=== PATIENT | female | born 1935 | race Caucasian/White ===

== ENCOUNTER 2023-05-13 19:16 | Inpatient (IN) ==
[2023-05-13] MEDS ORDERED: ACETAMINOPHEN 1,000 MG/100 ML VIAL IV STA (19:29)
[2023-05-13] MEDS ORDERED: SODIUM CHLORIDE 0.9% 1000ML 1,000 ML IV SCH (19:30)
--- NOTE | 2023-05-13 19:53 | Emergency Department Note ---
Impression & Plan CHI (closed head injury), Contusion of face, Fall, Alzheimer's dementia, Humerus fracture, Atrial fibrillation ED Provider Note ED Provider Note NAME: GAGAN CRUZ AGE:87 SEX: Female : 1935 ARRIVES VIA: EMS INFORMANT: EMS ED PROVIDER(s): Mary Overton DO CHIEF COMPLAINT: Fall, head injury HPI: This is an 87-year-old female presents via EMS from a local facility after an unwitnessed ground-level fall. Patient found on the floor with obvious injury to the head and staff they are concerned due to use of Xarelto for anticoagulation. Patient with history of Alzheimer's dementia and unable to provide any additional history. Patient seems uncomfortable in the right shoulder when staff was examining her initially prior to EMS arrival. PAST MEDICAL HISTORY:See Below PAST SURGICAL HISTORY:See Below FAMILY HISTORY:See Below SOCIAL HISTORY:See Below HOME MEDICATIONS:See Below ALLERGIES:See Below VITALS:See Below PHYSICAL EXAMINATION: GENERAL: alert, well nourished, no distress, non-toxic HEAD: nc, contusion noted to the left forehead, dressing in place, no other evidence of facial trauma, no chacon signs, no raccoon eyes EYE EXAM: normal conjunctiva, PERRL and EOM's grossly intact OROPHARYNX: no exudate, no erythema, lips, buccal mucosa, and tongue normal and mucous membranes are dry NECK: supple, no nuchal rigidity, no adenopathy, non-tender LUNGS: Clear to auscultation. Normal chest wall mechanics, no w/r/r HEART: no murmurs, S1 normal and S2 normal CHEST WALL: No pain with palpation along the chest wall, no crepitus, no ecchymosis ABDOMEN: abdomen soft, non-tender, normo-active bowel sounds, no masses, no rebound or guarding. PELVIS: Stable to compression, nontender with palpation BACK: Back is symmetrical on inspection and there is no deformity, no midline tenderness, no CVA tenderness. SKIN: no rashes, petechiae, orbruising UPPER EXTREMITIES: upper extremities are grossly normal. FROM, nml pulses b/l. No evidence of trauma or deformity LUE. Edema noted to right shoulder and humeral head/AC area tender with palpation LOWER EXTREMITIES: No pitting edema. FROM, nml pulses b/l. No evidence of trauma or deformity. Patient reports pain with range of motion testing at the right hip NEURO EXAM: Confused, cranial nerves II-XII grossly intact, normal speech, no facial droop,nogross weakness of arms, no gross weakness of legs. Gross sensation intact. No ataxia. Vital Signs: reviewed and remarkable Differential Diagnosis: CHI, ICH, CVA, mechanical fall, syncope, occult fracture, contusion, laceration, musculoskeletal strain/sprain, as well as others were considered MEDICAL DECISION MAKING: This is an 87-year-old female with a history of dementia who presents via EMS after being found down following an unwitnessed fall. Patient with obvious head trauma and concern given she does take Xarelto daily. Labs are drawn and sent, IV established, EKG and x-rays performed at bedside interpreted by me and patient monitored on telemetry. She was noted to have a fracture of the right humeral neck, no additional dislocation. She was sent for additional CT imaging. No other acute traumatic injury noted. Patient's facial laceration repaired by myself at bedside, please see laceration note for additional details. Patient noted to have a stable H&H. She was also noted to have a UTI and was started on IV antibiotics. Given patient typically uses a walker, and will now require increased help with daily activities, we called the facility. Case management states facility told them they do not have staffing at this time for upgraded level of care and so patient will require inpatient treatment until this can be arranged. Patient's family at bedside updated on all results, verbalized understanding, and were in agreement with the plan. I have low suspicion for any additional occult traumatic injury at this time. Patient was placed in a sling to treat the fracture. Consultation(s): 2239: Discussed with Dr. Seymour at bedside. ER Treatment Provided: See below 222: Updated family at bedside. Diagnostics Interpreted By Me: -ECG: Atrial fibrillation at 83, leftward axis, normal QRS and QTc, nonspecific ST/T wave changes -Cardiac Monitoring: An order was placed for continuous cardiac monitoring. The monitor shows a rate of 80 with A-fib rhythm. -Laboratory studies: As stated above and show below. -Imaging studies: x-ray shoulder: fracture of the humeral neck, no dislocation Triage Nursing Note Reviewed Prior/Outside Records Reviewed Procedures: Location: Left forehead Total length: 3.2 cm Complexity: Simple Verbal consent was obtained after the risks and benefits were explained, including but not limited to bleeding, scarring, infection, pain, and bone/joint/nerve damage. At this time, the risks of the procedure are less than the risks of NOT performing the procedure. A time out was taken and the correct patient and site identified. The skin was prepped with chlorhexidine. The target area was anesthetized with 5 ml of 1% lidocaine without epinephrine. Copious irrigation was performed using sterile water. The skin was re-prepped with chlorhexidine and a sterile field set. The wound was explored for foreign bodies and none found. Examination revealed no injury to deep structures such as tendo ns, bone, or significant blood vessels. Debridement was not performed. The wound edges were approximated using 3, 5-0 simple interrupted nylon sutures. Hemostasis and excellent approximation was achieved. Antibacterial ointment and a sterile dressing applied. Detailed wound care instructions and signs and symptoms of infection reviewed with the family. No complications and the patient tolerated the procedure well. Critical Care: [] Past Med/Surg History Medical History Alzheimer's dementia Atrial flutter Legal blindness Lung cancer Surgical History (Updated 05/14/23 @ 03:00 by Myriam Seymour DO) History of lobectomy of lung Family History (Updated 05/14/23 @ 03:01 by Myriam Seymour DO) Other Family history non-contributory Social History Smoking Status: Unknown if ever smoked Hx Alcohol Use: No Hx Substance Use: No Preferred Language: Monegasque Communication Ability: Impaired Communication Ability Comment: hx dementia, difficulty following commands Marketing Financial Analyst Required: No Beliefs That Will Affect Care: None Current Living Situation: [facility] Current Living Situation Comment: locked dementia unit Feels Safe at Home: Yes Assistive Devices: Walker Allergies Allergies Allergy/AdvReac Type Severity Reaction Status Date / Time atorvastatin Allergy Unknown ON [facility]RE Verified 05/13/23 20:52 CARE MED LIST erythromycin base Allergy Unknown ON CENTRE Verified 05/13/23 20:52 CARE MED LIST Iodinated Contrast Media Allergy Unknown ON CENTRE Verified 05/13/23 20:52 CARE MED LIST--RADIOPAQUE IODINE. pravastatin Allergy Unknown ON CENTRE Verified 05/13/23 20:52 CARE MED LIST simvastatin Allergy Unknown ON CENTRE Verified 05/13/23 20:52 CARE MED LIST Home Meds Home Medications Medication Instructions Recorded Confirmed acetaminophen 325 mg tablet 650 mg PO Q6H PRN PAIN/TEMP >100F. 05/13/23 05/13/23 (Tylenol) acetaminophen 500 mg tablet 1,000 mg PO QAM 05/13/23 05/13/23 (Tylenol Extra Strength) alprazolam 0.5 mg tablet 0.5 mg PO BID 05/13/23 05/13/23 atorvastatin 20 mg tablet 20 mg PO HS 05/13/23 05/13/23 cromolyn 4 % eye drops 2 drp OPB QID 05/13/23 05/13/23 ferrous sulfate 325 mg (65 mg 325 mg PO QDL 05/13/23 05/13/23 iron) tablet levothyroxine 112 mcg tablet 112 mcg PO DAILY 05/13/23 05/13/23 linagliptin 5 mg tablet (Tradjenta) 5 mg PO QAM 05/13/23 05/13/23 magnesium oxide 400 mg PO DAILY 05/13/23 05/13/23 melatonin 5 mg tablet 10 mg PO HS 05/13/23 05/13/23 olanzapine 2.5 mg tablet (Zyprexa) 2.5 mg PO BID 05/13/23 05/13/23 propranolol 40 mg tablet 40 mg PO Q12H 05/13/23 05/13/23 rivaroxaban 15 mg tablet (Xarelto) 15 mg PO PM 05/13/23 05/13/23 sertraline 100 mg tablet 100 mg PO DAILY 05/13/23 05/13/23 Results & Data (ED) Vital Signs Vital Signs - 24 hr 05/13/23 19:18 05/13/23 19:55 Temperature 36.8 C Temperature Source Oral Pulse Rate 97 H 94 H Respiratory Rate 17 Respiratory Effort / Characteristics Non-Labored Spontaneous Respiratory Depth Normal Respiratory Pattern Regular Blood Pressure 160/125 H Blood Pressure Mean 136 Pulse Oximetry 95 Oxygen Delivery Method Room Air Sepsis Recent Fever Within 48 Hours No Sepsis New/Unexplained Change in Mental Status N/A Sepsis Action Taken by Nursing No Action Required Laboratory Data 05/13/23 19:32 05/13/23 21:15 Lab Results 05/13/23 05/13/23 05/13/23 Range/Units 19:32 19:32 19:32 WBC 9.68 (4.8-10.8) K/ul RBC 4.12 L (4.20-5.40) M/uL Hgb 12.7 (12.0-16.0) g/dl Hct 39.7 (37.0-47.0) % MCV 96.4 (80.0-100.0) fL MCH 30.8 (25.0-34.0) pg MCHC 32.0 (32.0-36.0) g/dL RDW Std Deviation 46.5 H (36.4-46.3) fL RDW Coeff of Hesham 13.2 (11.5-14.5) % Plt Count 255 (130-400) K/uL MPV 10.9 (9.4-12.4) fL Immature Gran % (Auto) 0.9 % Neut % (Auto) 59.6 % Lymph % (Auto) 24.6 % Churchill % (Auto) 11.7 % Eos % (Auto) 2.6 % Baso % (Auto) 0.6 % Neut # (Auto) 5.77 (1.40-6.50) K/uL Lymph # (Auto) 2.38 (1.2-3.4) K/uL Churchill # (Auto) 1.13 H (0.11-0.59) K/uL Eos # (Auto) 0.25 (0-0.50) K/uL Baso # (Auto) 0.06 (0-0.2) K/uL Immature Gran # (Auto) 0.09 (0.01-0.20) K/uL Sodium 139 (136-145) mmol/L Potassium TNP Chloride 108 H (98-107) mmol/L Carbon Dioxide 22 (21-32) mmol/L Anion Gap 9 (3-11) BUN 38 H (6-23) mg/dl Creatinine 1.46 H (0.6-1.2) mg/dl Est Cr Clr Drug Dosing 25.3 ml/min Est GFR ( Amer) 37.6 ml/min Est GFR (Non-Af Amer) 32.5 ml/min BUN/Creatinine Ratio 26.0 H (10-20) Glucose 152 H (70-99(Fasting)) mg/dl Calcium 9.3 (8.6-10.3) mg/dl Magnesium 2.1 (1.7-2.4) mg/dl Total Bilirubin 0.4 (0.2-1.0) mg/dl AST TNP ALT 11 (7-52) U/L Alkaline Phosphatase 72 (34-104) U/L Troponin I High Sens 7.0 (0-14) pg/ml Total Protein 7.9 (6.0-8.3) gm/dl Albumin 4.3 (3.4-5.0) gm/dl Globulin 3.6 (2.5-4.0) gm/dl Albumin/Globulin Ratio 1.2 (0.9-2) TSH 1.619 (0.300-4.500) uIu/ml Urine Color Urine Appearance (Clear) Urine pH (4.5-7.5) Ur Specific [place] (1.000-1.030) Urine Protein (Negative) Urine Glucose (UA) (Negative) Urine Ketones (Negative) Urine Blood (Negative) Urine Nitrite (Negative) Urine Bilirubin (Negative) Urine Urobilinogen (Negative) Ur Leukocyte Esterase (Negative) Urine WBC (Auto) (0-5) /hpf Urine RBC (Auto) (0-4) /hpf U Hyaline Cast (Auto) (0-5) /lpf U Epithel Cells (Auto) (0-5) /lpf Urine Bacteria (Auto) (Negative) 05/13/23 05/13/23 Range/Units 21:15 21:45 WBC (4.8-10.8) K/ul RBC (4.20-5.40) M/uL Hgb (12.0-16.0) g/dl Hct (37.0-47.0) % MCV (80.0-100.0) fL MCH (25.0-34.0) pg MCHC (32.0-36.0) g/dL RDW Std Deviation (36.4-46.3) fL RDW Coeff of Hesham (11.5-14.5) % Plt Count (130-400) K/uL MPV (9.4-12.4) fL Immature Gran % (Auto) % Neut % (Auto) % Lymph % (Auto) % Churchill % (Auto) % Eos % (Auto) % Baso % (Auto) % Neut # (Auto) (1.40-6.50) K/uL Lymph # (Auto) (1.2-3.4) K/uL Churchill # (Auto) (0.11-0.59) K/uL Eos # (Auto) (0-0.50) K/uL Baso # (Auto) (0-0.2) K/uL Immature Gran # (Auto) (0.01-0.20) K/uL Sodium (136-145) mmol/L Potassium 4.6 Chloride (98-107) mmol/L Carbon Dioxide (21-32) mmol/L Anion Gap (3-11) BUN (6-23) mg/dl Creatinine (0.6-1.2) mg/dl Est Cr Clr Drug Dosing ml/min Est GFR ( Amer) ml/min Est GFR (Non-Af Amer) ml/min BUN/Creatinine Ratio (10-20) Glucose (70-99(Fasting)) mg/dl Calcium (8.6-10.3) mg/dl Magnesium (1.7-2.4) mg/dl Total Bilirubin (0.2-1.0) mg/dl AST 20 ALT (7-52) U/L Alkaline Phosphatase (34-104) U/L Troponin I High Sens (0-14) pg/ml Total Protein (6.0-8.3) gm/dl Albumin (3.4-5.0) gm/dl Globulin (2.5-4.0) gm/dl Albumin/Globulin Ratio (0.9-2) TSH (0.300-4.500) uIu/ml Urine Color Yellow Urine Appearance Cloudy A (Clear) Urine pH 5.5 (4.5-7.5) Ur Specific [place] 1.020 (1.000-1.030) Urine Protein 1+ H (Negative) Urine Glucose (UA) Negative (Negative) Urine Ketones Negative (Negative) Urine Blood 1+ H (Negative) Urine Nitrite Positive A (Negative) Urine Bilirubin Negative (Negative) Urine Urobilinogen Negative (Negative) Ur Leukocyte Esterase 2+ H (Negative) Urine WBC (Auto) >30 H (0-5) /hpf Urine RBC (Auto) 0-4 (0-4) /hpf U Hyaline Cast (Auto) 0 (0-5) /lpf U Epithel Cells (Auto) 0-5 (0-5) /lpf Urine Bacteria (Auto) 4+ H (Negative) Administered Medications Alprazolam (Alprazolam 0.5 Mg Tablet) 0.5 mg PO BID@1430,2029 [facility] Stop: 06/13/23 14:29 Last Admin: 05/14/23 21:19 Dose: 0.5 mg Documented By: Admin: 05/14/23 19:13 Dose: Not Given Documented By: CARLITA Atorvastatin Calcium (Atorvastatin 20 Mg Tab) 20 mg PO [facility] Stop: 06/13/23 20:59 Last Admin: 05/14/23 21:20 Dose: 20 mg Documented By: ELENA Ceftriaxone Sodium 1,000 mg/ (Dextrose) 50 mls @ 100 mls/hr IV Q24H [facility]; Protocol Stop: 05/20/23 00:00 Last Infusion: 05/14/23 23:54 Dose: 0 mls/hr Documented By: Admin: 05/14/23 23:19 Dose: 100 mls/hr Documented By: ELENA Levothyroxine Sodium (Levothyroxine Sodium 112 Mcg Tablet) [facility] Stop: 06/13/23 06:29 Last Admin: 05/14/23 07:59 Dose: 112 mcg Documented By: BREN Melatonin (Melatonin 3 Mg Tab) 9 mg PO [facility] Stop: 06/13/23 20:59 Last Admin: 05/14/23 21:20 Dose: Not Given Documented By: ELENA Morphine Sulfate (Morphine Sulfate 2 Mg/Ml Carp) 2 mg IV Q3H PRN PRN Reason: Pain (6,7,8,9,10) Stop: 05/28/23 02:57 Last Admin: 05/14/23 16:02 Dose: 2 mg Documented By: Admin: 05/14/23 06:11 Dose: 2 mg Documented By: REANN Olanzapine (Olanzapine 2.5 Mg Tab) 2.5 mg PO BID@30,2029 [facility] Stop: 06/13/23 20:29 Last Admin: 05/14/23 21:19 Dose: 2.5 mg Documented By: ELENA Propranolol HCl (Propranolol Hcl 20 Mg Tab) 40 mg PO Q12H [facility] Stop: 06/13/23 08:29 Last Admin: 05/14/23 21:19 Dose: 40 mg Documented By: Admin: 05/14/23 08:00 Dose: 40 mg Documented By: BREN Sertraline HCl (Sertraline Hcl 100 Mg Tablet) 100 mg PO DAILY [facility] Stop: 06/13/23 08:59 Last Admin: 05/14/23 07:59 Dose: 100 mg Documented By: BREN Discontinued Medications Alprazolam (Alprazolam 0.5 Mg Tablet) 0.5 mg PO NOW STA Stop: 05/13/23 23:52 Last Admin: 05/14/23 00:25 Dose: 0.5 mg Documented By: RENAN Fentanyl Citrate (Fentanyl Citrate Pf 100 Mcg/2 Ml Vial) 25 mcg IV NOW ONE Stop: 05/13/23 21:36 Last Admin: 05/13/23 21:40 Dose: 25 mcg Documented By: GLORY Gelatin (Gelatin Sponge 12-7mm) Confirm Administered Dose 1 each .ROUTE .STK-MED ONE Stop: 05/14/23 01:10 Last Admin: 05/14/23 01:20 Dose: 1 each Documented By: RENAN Sodium Chloride (Nss 1000ml) 1,000 mls @ 125 mls/hr IV .Q8H [facility] Stop: 06/12/23 19:29 Last Infusion: 05/14/23 03:18 Dose: 0 mls/hr Documented By: Admin: 05/13/23 19:36 Dose: 125 mls/hr Documented By: SRIRAM Acetaminophen (Ofirmev) 1,000 mg in 100 mls @ 400 mls/hr IV NOW STA Stop: 05/13/23 19:43 Last Infusion: 05/13/23 20:17 Dose: 0 mls/hr Documented By: Admin: 05/13/23 19:37 Dose: 400 mls/hr Documented By: SRIRAM Ceftriaxone Sodium 1,000 mg/ (Dextrose) 50 mls @ 100 mls/hr IV NOW STA Stop: 05/14/23 00:26 Last Infusion: 05/14/23 01:20 Dose: 0 mls/hr Documented By: Admin: 05/14/23 00:25 Dose: 100 mls/hr Documented By: RENAN Labetalol HCl (Labetalol Hcl Iv 5 Mg/Ml 20ml) 5 mg IV NOW STA Stop: 05/14/23 02:16 Last Admin: 05/14/23 02:22 Dose: 5 mg Documented By: AN Co-signed By: JANET Labetalol HCl (Labetalol Hcl Iv 5 Mg/Ml 20ml) 10 mg IV NOW STA Stop: 05/14/23 06:39 Last Admin: 05/14/23 08:00 Dose: 10 mg Documented By: BREN Co-signed By: ROBERTA Lidocaine/Epinephrine (Lido/Epinephrine/Sod Bicarb 50 Ml Vial) Confirm Administered Dose 1 ml INFIL .STK-MED ONE Stop: 05/13/23 23:07 Last Admin: 05/13/23 23:22 Dose: 1 ml Documented By: YING Olanzapine (Olanzapine 2.5 Mg Tab) 2.5 mg PO NOW STA Stop: 05/13/23 23:53 Last Admin: 05/14/23 00:25 Dose: 2.5 mg Documented By: RENAN Olanzapine (Olanzapine 2.5 Mg Tab) 2.5 mg PO BID@0830,1630 [facility] Stop: 06/13/23 08:29 Last Admin: 05/14/23 20:13 Dose: Not Given Documented By: Admin: 05/14/23 07:59 Dose: 2.5 mg Documented By: BREN Pneumococcal Polyvalent Vaccine (Pneumococcal Polysaccharide Vaccine 25mcg/0.5ml Vial/Syr) 25 mcg IM .ONCE ONE Stop: 05/14/23 10:46 Last Admin: 05/14/23 15:30 Dose: Not Given Documented By: CARLITA Tranexamic Acid (Txa 10% Non-Iv Routes 100 Mg/Ml Vial) 1,000 mg TOP ONE ONE Stop: 05/13/23 22:04 Last Admin: 05/13/23 22:54 Dose: 1,000 mg Documented By: GLORY Tranexamic Acid (Txa 10% Non-Iv Routes 100 Mg/Ml Vial) 1,000 mg TOP ONE ONE Stop: 05/14/23 02:42 Last Admin: 05/14/23 03:17 Dose: 1,000 mg Documented By: RENAN Imaging Data Radiologist's Impression: Face CT 05/13/23 19:27 Exam(s): CT FACIAL Without Contrast EXAM: CT Maxillofacial Without Intravenous Contrast CLINICAL HISTORY: Reason for exam: trauma. TECHNIQUE: Axial computed tomography images of the face without intravenous contrast. CTDI is 34.62 mGy and DLP is 546.36 mGy-cm. Automated exposure control was utilized for the study. A dose lowering technique was utilized adhering to the principles of ALARA. COMPARISON: No relevant prior studies available. FINDINGS: The mandible is intact. Intact maxillary alveolus. The orbital rims and floors are intact. The intraorbital contents are grossly unremarkable. LEFT periorbital laceration/hematoma. Intact nasal bones, nasal septum, and maxillary spines. The zygomatic arches and pterygoid processes are intact. IMPRESSION: No facial bone fracture. LEFT periorbital laceration/hematoma. Electronically signed by: Satya Reyes MD 05/13/23 20:21 PM Hip/Pelvis X-Ray 05/13/23 19:27 SINGLE VIEW PELVIS; 2 VIEWS RIGHT HIP CLINICAL HISTORY: Trauma. FINDINGS: AP views of the pelvis with AP and frog leg views of the right hip are obtained. No prior studies are available for comparison at the time of dictation. The skeletal structures are osteopenic. There is no radiographic evidence of acute fracture involving the hips or bony pelvis. [id number] arthritic change and joint space narrowing is seen in the hips. There is degene rative sclerosis of the sacroiliac joints. The overlying soft tissues are within normal limits. Atherosclerotic calcification is noted in the femoral arteries. IMPRESSION: No acute bony abnormality is identified. Electronically signed by: Gavin Florentino M.D. 05/13/2023 10:[address] 05/13/23 19:28 Exam(s): CT C SPINE EXAM: CT Cervical Spine Without Intravenous Contrast CLINICAL HISTORY: Reason for exam: trauma. TECHNIQUE: Axial computed tomography images of the cervical spine without intravenous contrast. CTDI is 26.96 mGy and DLP is 704.73 mGy-cm. Automated exposure control was utilized for the study. A dose lowering technique was utilized adhering to the principles of ALARA. COMPARISON: No relevant prior studies available. FINDINGS: The vertebral body heights are maintained. The craniocervical junction is intact. The atlanto-dens interval is maintained. The dens is intact. There is no spondylolisthesis. Multilevel cervical spondylosis and degenerative disc disease. Straightening of the cervical lordosis. The unenhanced neck soft tissues are grossly unremarkable. The visualized lung apices are grossly clear. IMPRESSION: No acute fracture or subluxation of the cervical spine. Electronically signed by: Satya Reyes MD 05/13/23 20:20 PM Chest X-Ray 05/13/23 19:28 SINGLE VIEW CHEST CLINICAL HISTORY: Trauma. FINDINGS: An AP, portable, supine chest radiograph is compared to study dated 02/18/2023. The heart is enlarged noting atherosclerotic calcification of the thoracic aorta. The pulmonary vasculature is noncongested. An accessory azygos fissure is incidentally noted. No airspace consolidation or large pleural effusion is identified. No pneumothorax is seen. The skeletal structures are osteopenic. There is a fracture of the right proximal humerus. There are c hronic/healed bilateral rib fractures. Cholecystectomy clips are seen in the right upper quadrant. IMPRESSION: 1. Cardiomegaly with no acute cardiopulmonary abnormality. 2. Fracture of the right proximal humerus. ACT 112: Negative or not required by law. Electronically signed by: Gavin Florentino M.D. 05/13/2023 10:[address] 05/13/23 19:28 Exam(s): CT HEAD Without Contrast EXAM: CT Head Without Intravenous Contrast CLINICAL HISTORY: Reason for exam: trauma. TECHNIQUE: Axial computed tomography images of the head/brain without intravenous contrast. CTDI is 34.62 mGy and DLP is 546.36 mGy-cm. Automated exposure control was utilized for the study. A dose lowering technique was utilized adhering to the principles of ALARA. COMPARISON: No relevant prior studies available. FINDINGS: No acute intracranial hemorrhage. No midline shift or mass effect. The territorial petersen-white matter differentiation is maintained throughout. Age-related cerebral volume loss. Periventricular and subcortical white matter hypoattenuation, consistent with chronic microangiopathy. The visualized orbits appear grossly unremarkable. LEFT periorbital soft tissue swelling. The calvarium is intact. The visualized paranasal sinuses and mastoid air cells are grossly clear. IMPRESSION: No acute intracranial hemorrhage, midline shift, or mass effect. LEFT periorbital soft tissue swelling. Electronically signed by: Satya Reyes MD 05/13/23 20:19 PM Shoulder X-Ray 05/13/23 19:53 RIGHT SHOULDER 3 VIEWS CLINICAL HISTORY: Trauma. Fall. FINDINGS: 3 views of the right shoulder are obtained. No prior studies are avail able for comparison at the time of dictation. The skeletal structures are osteopenic. There is an impacted and comminuted fracture of the right humeral head and neck. There are mildly displaced fragments. Overlying soft tissue edema is observed. No additional fracture is seen. There is no dislocation. Mild degenerative change is noted at the glenohumeral and acromioclavicular joints. There are chronic/healed right-sided rib fractures. The right lung parenchyma is clear as visualized. IMPRESSION: Right humeral head and neck fracture as above. Electronically signed by: Gavin Florentino M.D. 05/13/2023 10:06 PM Discharge Plan Visit Data Chief Complaint: Fall ED Provider: Mary Overton Discharge Problem: CHI (closed head injury), Contusion of face, Fall, Alzheimer's dementia, Maria Elena niurka fracture, Atrial fibrillation Patient Disposition: Admitted As Inpatient Discharge Instructions Interventions: ED Discharge Assessment Last Done: 05/14/23 02:54
--- NOTE | 2023-05-13 20:20 | CT Scan Report ---
Exam(s): CT HEAD Without Contrast EXAM: CT Head Without Intravenous Contrast CLINICAL HISTORY: Reason for exam: trauma. TECHNIQUE: Axial computed tomography images of the head/brain without intravenous contrast. CTDI is 34.62 mGy and DLP is 546.36 mGy-cm. Automated exposure control was utilized for the study. A dose lowering technique was utilized adhering to the principles of ALARA. COMPARISON: No relevant prior studies available. FINDINGS: No acute intracranial hemorrhage. No midline shift or mass effect. The territorial petersen-white matter differentiation is maintained throughout. Age-related cerebral volume loss. Periventricular and subcortical white matter hypoattenuation, consistent with chronic microangiopathy. The visualized orbits appear grossly unremarkable. LEFT periorbital soft tissue swelling. The calvarium is intact. The visualized paranasal sinuses and mastoid air cells are grossly clear. IMPRESSION: No acute intracranial hemorrhage, midline shift, or mass effect. LEFT periorbital soft tissue swelling. Electronically signed by: Satya Reyes MD 05/13/23 20:19 PM
--- NOTE | 2023-05-13 20:21 | CT Scan Report ---
Exam(s): CT C SPINE EXAM: CT Cervical Spine Without Intravenous Contrast CLINICAL HISTORY: Reason for exam: trauma. TECHNIQUE: Axial computed tomography images of the cervical spine without intravenous contrast. CTDI is 26.96 mGy and DLP is 704.73 mGy-cm. Automated exposure control was utilized for the study. A dose lowering technique was utilized adhering to the principles of ALARA. COMPARISON: No relevant prior studies available. FINDINGS: The vertebral body heights are maintained. The craniocervical junction is intact. The atlanto-dens interval is maintained. The dens is intact. There is no spondylolisthesis. Multilevel cervical spondylosis and degenerative disc disease. Straightening of the cervical lordosis. The unenhanced neck soft tissues are grossly unremarkable. The visualized lung apices are grossly clear. IMPRESSION: No acute fracture or subluxation of the cervical spine. Electronically signed by: Satya Reyes MD 05/13/23 20:20 PM
--- NOTE | 2023-05-13 20:22 | CT Scan Report ---
Exam(s): CT FACIAL Without Contrast EXAM: CT Maxillofacial Without Intravenous Contrast CLINICAL HISTORY: Reason for exam: trauma. TECHNIQUE: Axial computed tomography images of the face without intravenous contrast. CTDI is 34.62 mGy and DLP is 546.36 mGy-cm. Automated exposure control was utilized for the study. A dose lowering technique was utilized adhering to the principles of ALARA. COMPARISON: No relevant prior studies available. FINDINGS: The mandible is intact. Intact maxillary alveolus. The orbital rims and floors are intact. The intraorbital contents are grossly unremarkable. LEFT periorbital laceration/hematoma. Intact nasal bones, nasal septum, and maxillary spines. The zygomatic arches and pterygoid processes are intact. IMPRESSION: No facial bone fracture. LEFT periorbital laceration/hematoma. Electronically signed by: Satya Reyes MD 05/13/23 20:21 PM
[2023-05-13 20:24] LABS: Basophils # (auto) 0.06 K/uL (0-0.2); Basophils % (auto) 0.6 %; Eosinophils # (auto) 0.25 K/uL (0-0.50); Eosinophils % (auto) 2.6 %; Hematocrit (blood only) 39.7 % (37.0-47.0); Hemoglobin 12.7 g/dl (12.0-16.0); Immature Granulocytes # (auto) 0.09 K/uL (0.01-0.20); Immature Granulocytes % (auto) 0.9 %; Lymphocytes # (auto) 2.38 K/uL (1.2-3.4); Lymphocytes % (auto) 24.6 %; Mean Corpuscular Hemoglobin 30.8 pg (25.0-34.0); Mean Corpuscular Volume 96.4 fL (80.0-100.0); Mean Platelet Volume 10.9 fL (9.4-12.4); Monocytes # (auto) 1.13 K/uL (0.11-0.59); Monocytes % (auto) 11.7 %; Neutrophils # (auto) 5.77 K/uL (1.40-6.50); Neutrophils % (auto) 59.6 %; Platelet Count 255 K/uL (130-400); RDW Coefficient of Variation 13.2 % (11.5-14.5); RDW Standard Deviation 46.5 fL (36.4-46.3); Red Blood Count 4.12 M/uL (4.20-5.40); White Blood Count 9.68 K/ul (4.8-10.8)
[2023-05-13 20:39] LABS: Alanine Aminotransferase 11 U/L (7-52); Albumin Globulin Ratio 1.2 (0.9-2); Albumin Level 4.3 gm/dl (3.4-5.0); Alkaline Phosphatase 72 U/L (34-104); Anion Gap 9 (3-11); Bilirubin,Total 0.4 mg/dl (0.2-1.0); Blood Urea Nitrogen 38 mg/dl (6-23); Calcium 9.3 mg/dl (8.6-10.3); Carbon Dioxide 22 mmol/L (21-32); Chloride 108 mmol/L (98-107); Creatinine Clr Calc Pharmacy 25.3 ml/min; Est GFR (African American) 37.6 ml/min; Est GFR (Non-African American) 32.5 ml/min; Globulin 3.6 gm/dl (2.5-4.0); Glucose 152 mg/dl (70-99(Fasting)); Magnesium 2.1 mg/dl (1.7-2.4); Sodium 139 mmol/L (136-145); Total Protein 7.9 gm/dl (6.0-8.3)
[2023-05-13] MEDS ORDERED: fentaNYL citrate PF 100 MCG/2 ML VIAL IV ONE (21:35)
[2023-05-13] MEDS ORDERED: TXA 10% Non-IV Routes 100 MG/ML VIAL TOP ONE (22:03)
--- NOTE | 2023-05-13 22:04 | XRay Report ---
SINGLE VIEW PELVIS; 2 VIEWS RIGHT HIP CLINICAL HISTORY: Trauma. FINDINGS: AP views of the pelvis with AP and frog leg views of the right hip are obtained. No prior s tudies are available for comparison at the time of dictation. The skeletal structures are osteopenic. There is no radiographic evidence of acute fracture involving the hips or bony pelvis. Omgp-ef-ahmqf ate arthritic change and joint space narrowing is seen in the hips. There is degenerative sclerosis o f the sacroiliac joints. The overlying soft tissues are within normal limits. Atherosclerotic calcifi cation is noted in the femoral arteries. IMPRESSION: No acute bony abnormality is identified. Electronically signed by: Gavin Florentino M.D. 05/13/2023 10:02 PM
--- NOTE | 2023-05-13 22:06 | XRay Report ---
SINGLE VIEW CHEST CLINICAL HISTORY: Trauma. FINDINGS: An AP, portable, supine chest radiograph is compared to study dated 02/18/2023. The heart is enlarged noting atherosclerotic calcification of the thoracic aorta. The pulmonary vasculature is no ncongested. An accessory azygos fissure is incidentally noted. No airspace consolidation or large ple ural effusion is identified. No pneumothorax is seen. The skeletal structures are osteopenic. There i s a fracture of the right proximal humerus. There are chronic/healed bilateral rib fractures. Cholecy stectomy clips are seen in the right upper quadrant. IMPRESSION: 1. Cardiomegaly with no acute cardiopulmonary abnormality. 2. Fracture of the right proximal humerus. ACT 112: Negative or not required by law. Electronically signed by: Gavin Florentino M.D. 05/13/2023 10:04 PM
--- NOTE | 2023-05-13 22:07 | XRay Report ---
RIGHT SHOULDER 3 VIEWS CLINICAL HISTORY: Trauma. Fall. FINDINGS: 3 views of the right shoulder are obtained. No prior studies are available for comparison a t the time of dictation. The skeletal structures are osteopenic. There is an impacted and comminuted fracture of the right humeral head and neck. There are mildly displaced fragments. Overlying soft tis walter edema is observed. No additional fracture is seen. There is no dislocation. Mild degenerative sujit nge is noted at the glenohumeral and acromioclavicular joints. There are chronic/healed right-sided r ib fractures. The right lung parenchyma is clear as visualized. IMPRESSION: Right humeral head and neck fracture as above. Electronically signed by: Gavin Florentino M.D. 05/13/2023 10:06 PM
[2023-05-13 22:10] LABS: Potassium 4.6 mmol/L (3.5-5.1)
[2023-05-13 22:41] LABS: Appearance Urine Cloudy (Clear); Bacteria Urine Automated 4+ (Negative); Bilirubin Urine Negative (Negative); Blood Urine 1+ (Negative); Cast Urine Automated 0 /lpf (0-5); Color Urine Yellow; Epithelial Cell Urine Auto 0-5 /lpf (0-5); Glucose Urine UA Negative (Negative); Ketones Urine Negative (Negative); Leukocyte Esterase Urine 2+ (Negative); Nitrite Urine Positive (Negative); Protein Urine 1+ (Negative); RBC Urine Automated 0-4 /hpf (0-4); Urobilinogen Urine Negative (Negative); WBC Urine Automated >30 /hpf (0-5); pH Urine 5.5 (4.5-7.5)
[2023-05-13] MEDS ORDERED: LIDO/EPINEPHRINE/SOD BICARB 50 ML VIAL INFIL ONE (23:06)
--- NOTE | 2023-05-13 23:28 | History & Physical Report ---
Date of Service May 13, 2023 Assessment & Plan (1) Humerus fracture: Plan: 87yo female with Alzheimer's dementia presenting from [facility] after an unwitnessed fall resulting in a laceration over left eye and right humerus fracture. Patient in pain. Limited mobility of RUE. -Observation to medical -Maintain arm in sling -Pain control with Morphine PRN -Orthopedic Surgery consultation appreciated (2) Contusion of face: Plan: Patient with fall resulting in contusion, laceration over left eye with significant periorbital ecchymosis. CT head with no acute intracranial hemorrhage. CT c-spine without acute fracture or subluxation. Patient is on Xarelto for history of atrial flutter -Wound care as daily to laceration -Neuro checks (3) Alzheimer's dementia: Plan: Hmbgwvgy-lt-tfk reports occasional combative behavior. Patient at high risk for delirium given AD, head trauma, hospital admission -Frequent orientation History of Present Illness Chief Complaint: fall, humerus fracture Primary Care Provider: [facility] Mona Severino is an 87yo female with history of Alzheimer's dementia, legal blindness presenting from [facility] after an unwitnessed fall. Patient is supposed to ambulate with a walker. She has fallen frequently - this is the 3rd time in the last month. Fall today was unwitnessed. Patient sustained a laceration on left forehead and a right humerus fracture. She is unable to provide clear details of the fall. She denies chest pain, palpitations or dizziness. No additional complaints at this time. Patient resides at [facility] - is unable to return there this evening due to staffing issues and her increased care needs given her right humerus fracture and inability to use her walker. In the ER she is hypertensive, in discomfort. Laceration over left eye is repaired Allergies Allergy/AdvReac Type Severity Reaction Status Date / Time atorvastatin Allergy Unknown ON CENTRE Verified 05/13/23 20:52 CARE MED LIST erythromycin base Allergy Unknown ON CENTRE Verified 05/13/23 20:52 CARE MED LIST Iodinated Contrast Media Allergy Unknown ON CENTRE Verified 05/13/23 20:52 CARE MED LIST--RADIOPAQUE IODINE. pravastatin Allergy Unknown ON CENTRE Verified 05/13/23 20:52 CARE MED LIST simvastatin Allergy Unknown ON CENTRE Verified 05/13/23 20:52 CARE MED LIST Home Medications Medication Instructions Recorded Confirmed Type acetaminophen 325 mg tablet 650 mg PO Q6H PRN PAIN/TEMP >100F. 05/13/23 05/13/23 History (Tylenol) acetaminophen 500 mg tablet 1,000 mg PO QAM 05/13/23 05/13/23 History (Tylenol Extra Strength) alprazolam 0.5 mg tablet 0.5 mg PO BID 05/13/23 05/13/23 History atorvastatin 20 mg tablet 20 mg PO HS 05/13/23 05/13/23 History cromolyn 4 % eye drops 2 drp OPB QID 05/13/23 05/13/23 History ferrous sulfate 325 mg (65 mg 325 mg PO QDL 05/13/23 05/13/23 History iron) tablet levothyroxine 112 mcg tablet 112 mcg PO DAILY 05/13/23 05/13/23 History linagliptin 5 mg tablet (Tradjenta) 5 mg PO QAM 05/13/23 05/13/23 History magnesium oxide 400 mg PO DAILY 05/13/23 05/13/23 History melatonin 5 mg tablet 10 mg PO HS 05/13/23 05/13/23 History olanzapine 2.5 mg tablet (Zyprexa) 2.5 mg PO BID 05/13/23 05/13/23 History propranolol 40 mg tablet 40 mg PO Q12H 05/13/23 05/13/23 History rivaroxaban 15 mg tablet (Xarelto) 15 mg PO PM 05/13/23 05/13/23 History sertraline 100 mg tablet 100 mg PO DAILY 05/13/23 05/13/23 History Past Med/Surg History Medical History (Updated 05/14/23 @ 03:04 by Myriam Seymour DO) Alzheimer's dementia Atrial flutter Legal blindness Lung cancer Surgical History (Updated 05/14/23 @ 03:00 by Myriam Seymour DO) History of lobectomy of lung Family History (Updated 05/14/23 @ 03:01 by Myriam Seymour DO) Other Family history non-contributory Social History Smoking Status: Never smoker Feels Safe at Home: Yes Review of Systems Review of Systems: Unobtainable due to cognitive status Physical Exam Physical Exam: General: patient in discomfort, does not answer questions appropriately Skin: warm, dry, laceration over left eye HEENT: NC, laceration over left eye with significant periorbital ecchymosis, anicteric sclera, conjunctiva without injection, external ear normal to inspection and nontender, nares patent, moist mucus membranes, dentition intact, no oropharyngeal lesions, neck supple, trachea midline, no LAD, no thyromegaly, no JVD Heart: +S1/S2, regular, no m/r/g Lungs: equal air entry bilaterally, no rales/rhonchi/wheezes Abd: +BS, soft, NT/ND, no masses/organomegaly/ascites Ext: warm, 2+ pulses in UE/LE bilaterally, no clubbing/cyanosis or edema Acute tenderness with palpation and motion of RUE Neuro: nonfocal, speech intact, no facial droop, moving all extremities on command with equal strength 5/5 Results & Data Results & Data Vital Signs (Past 12 Hours) Vital Signs Temp Pulse Resp BP Pulse Ox O2 Del Method 05/13/23 19:55 94 H 05/13/23 19:18 36.8 C 97 H 17 160/125 H 95 Room Air Laboratory Results Laboratory Results WBC 9.68 K/ul (4.8-10.8) 05/13/23 19:32 RBC 4.12 M/uL (4.20-5.40) L 05/13/23 19:32 Hgb 12.7 g/dl (12.0-16.0) 05/13/23 19:32 Hct 39.7 % (37.0-47.0) 05/13/23 19:32 MCV 96.4 fL (80.0-100.0) 05/13/23 19:32 MCH 30.8 pg (25.0-34.0) 05/13/23 19:32 MCHC 32.0 g/dL (32.0-36.0) 05/13/23 19:32 RDW Std Deviation 46.5 fL (36.4-46.3) H 05/13/23 19:32 RDW Coeff of Hesham 13.2 % (11.5-14.5) 05/13/23 19:32 Plt Count 255 K/uL (130-400) 05/13/23 19:32 MPV 10.9 fL (9.4-12.4) 05/13/23 19:32 Immature Gran % (Auto) 0.9 % 05/13/23 19:32 Neut % (Auto) 59.6 % 05/13/23 19:32 Lymph % (Auto) 24.6 % 05/13/23 19:32 [place] % (Auto) 11.7 % 05/13/23 19:32 Eos % (Auto) 2.6 % 05/13/23 19:32 Baso % (Auto) 0.6 % 05/13/23 19:32 Neut # (Auto) 5.77 K/uL (1.40-6.50) 05/13/23 19:32 Lymph # (Auto) 2.38 K/uL (1.2-3.4) 05/13/23 19:32 [place] # (Auto) 1.13 K/uL (0.11-0.59) H 05/13/23 19:32 Eos # (Auto) 0.25 K/uL (0-0.50) 05/13/23 19:32 Baso # (Auto) 0.06 K/uL (0-0.2) 05/13/23 19:32 Immature Gran # (Auto) 0.09 K/uL (0.01-0.20) 05/13/23 19:32 Sodium 139 mmol/L (136-145) 05/13/23 19:32 Potassium 4.6 mmol/L (3.5-5.1) 05/13/23 21:15 Chloride 108 mmol/L (98-107) H 05/13/23 19:32 Carbon Dioxide 22 mmol/L (21-32) 05/13/23 19:32 Anion Gap 9 (3-11) 05/13/23 19:32 BUN 38 mg/dl (6-23) H 05/13/23 19:32 Creatinine 1.46 mg/dl (0.6-1.2) H 05/13/23 19:32 Est Cr Clr Drug Dosing 25.3 ml/min 05/13/23 19:32 Est GFR ( Amer) 37.6 ml/min 05/13/23 19:32 Est GFR (Non-Af Amer) 32.5 ml/min 05/13/23 19:32 BUN/Creatinine Ratio 26.0 (10-20) H 05/13/23 19:32 Glucose 152 mg/dl (70-99(Fasting)) H 05/13/23 19:32 Calcium 9.3 mg/dl (8.6-10.3) 05/13/23 19:32 Magnesium 2.1 mg/dl (1.7-2.4) 05/13/23 19:32 Total Bilirubin 0.4 mg/dl (0.2-1.0) 05/13/23 19:32 AST 20 U/L (13-39) 05/13/23 21:15 ALT 11 U/L (7-52) 05/13/23 19:32 Alkaline Phosphatase 72 U/L (34-104) 05/13/23 19:32 Troponin I High Sens 7.0 pg/ml (0-14) 05/13/23 19:32 Total Protein 7.9 gm/dl (6.0-8.3) 05/13/23 19:32 Albumin 4.3 gm/dl (3.4-5.0) 05/13/23 19:32 Globulin 3.6 gm/dl (2.5-4.0) 05/13/23 19:32 Albumin/Globulin Ratio 1.2 (0.9-2) 05/13/23 19:32 TSH 1.619 uIu/ml (0.300-4.500) 05/13/23 19:32 Urine Color Yellow 05/13/23 21:45 Urine Appearance Cloudy (Clear) A 05/13/23 21:45 Urine pH 5.5 (4.5-7.5) 05/13/23 21:45 Ur Specific [employer] [place] 1.020 (1.000-1.030) 05/13/23 21:45 Urine Protein 1+ (Negative) H 05/13/23 21:45 Urine Glucose (UA) Negative (Negative) 05/13/23 21:45 Urine Ketones Negative (Negative) 05/13/23 21:45 Urine Blood 1+ (Negative) H 05/13/23 21:45 Urine Nitrite Positive (Negative) A 05/13/23 21:45 Urine Bilirubin Negative (Negative) 05/13/23 21:45 Urine Urobilinogen Negative (Negative) 05/13/23 21:45 Ur Leukocyte Esterase 2+ (Negative) H 05/13/23 21:45 Urine WBC (Auto) >30 /hpf (0-5) H 05/13/23 21:45 Urine RBC (Auto) 0-4 /hpf (0-4) 05/13/23 21:45 U Hyaline Cast (Auto) 0 /lpf (0-5) 05/13/23 21:45 U Epithel Cells (Auto) 0-5 /lpf (0-5) 05/13/23 21:45 Urine Bacteria (Auto) 4+ (Negative) H 05/13/23 21:45 SARS-CoV-2, RNA, NAAT NEGATIVE (NEGATIVE) 05/13/23 23:[address] 05/13/23 19:27 Exam(s): CT FACIAL Without Contrast EXAM: CT Maxillofacial Without Intravenous Contrast CLINICAL HISTORY: Reason for exam: trauma. TECHNIQUE: Axial computed tomography images of the face without intravenous contrast. CTDI is 34.62 mGy and DLP is 546.36 mGy-cm. Automated exposure control was utilized for the study. A dose lowering technique was utilized adhering to the principles of ALARA. COMPARISON: No relevant prior studies available. FINDINGS: The mandible is intact. Intact maxillary alveolus. The orbital rims and floors are intact. The intraorbital contents are grossly unremarkable. LEFT periorbital laceration/hematoma. Intact nasal bones, nasal septum, and maxillary spines. The zygomatic arches and pterygoid processes are intact. IMPRESSION: No facial bone fracture. LEFT periorbital laceration/hematoma. Electronically signed by: Satya Reyes MD 05/13/23 20:21 PM Hip/Pelvis X-Ray 05/13/23 19:27 SINGLE VIEW PELVIS; 2 VIEWS RIGHT HIP CLINICAL HISTORY: Trauma. FINDINGS: AP views of the pelvis with AP and frog leg views of the right hip are obtained. No prior studies are available for comparison at the time of dictation. The skeletal structures are osteopenic. There is no radiographic evidence of acute fracture involving the hips or bony pelvis. Gzov-nd-ioeyptuv arthritic change and joint space narrowing is seen in the hips. There is degenerative sclerosis of the sacroiliac joints. The overlying soft tissues are within normal limits. Atherosclerotic calcification is noted in the femoral arteries. IMPRESSION: No acute bony abnormality is identified. Electronically signed by: Gavin Florentino M.D. 05/13/2023 10:[address] 05/13/23 19:28 Exam(s): CT C SPINE EXAM: CT Cervical Spine Without Intravenous Contrast CLINICAL HISTORY: Reason for exam: trauma. TECHNIQUE: Axial computed tomography images of the cervical spine without intravenous contrast. CTDI is 26.96 mGy and DLP is 704.73 mGy-cm. Automated exposure control was utilized for the study. A dose lowering technique was utilized adhering to the principles of ALARA. COMPARISON: No relevant prior studies available. FINDINGS: The vertebral body heights are maintained. The craniocervical junction is intact. The atlanto-dens interval is maintained. The dens is intact. There is no spondylolisthesis. Multilevel cervical spondylosis and degenerative disc disease. Straightening of the cervical lordosis. The unenhanced neck soft tissues are grossly unremarkable. The visualized lung apices are grossly clear. IMPRESSION: No acute fracture or subluxation of the cervical spine. Electronically signed by: Satya Reyes MD 05/13/23 20:20 PM Chest X-Ray 05/13/23 19:28 SINGLE VIEW CHEST CLINICAL HISTORY: Trauma. FINDINGS: An AP, portable, supine chest radiograph is compared to study dated 02/18/2023. The heart is enlarged noting atherosclerotic calcification of the thoracic aorta. The pulmonary vasculature is noncongested. An accessory azygos fissure is incidentally noted. No airspace consolidation or large pleural effusion is identified. No pneumothorax is seen. The skeletal structures are osteopenic. There is a fracture of the right proximal humerus. There are chronic/healed bilateral rib fractures. Cholecystectomy clips are seen in the right upper quadrant. IMPRESSION: 1. Cardiomegaly with no acute cardiopulmonary abnormality. 2. Fracture of the right proximal humerus. ACT 112: Negative or not required by law. Electronically signed by: Gavin Florentino M.D. 05/13/2023 10:[address] 05/13/23 19:28 Exam(s): CT HEAD Without Contrast EXAM: CT Head Without Intravenous Contrast CLINICAL HISTORY: Reason for exam: trauma. TECHNIQUE: Axial computed tomography images of the head/brain without intravenous contrast. CTDI is 34.62 mGy and DLP is 546.36 mGy-cm. Automated exposure control was utilized for the study. A dose lowering technique was utilized adhering to the principles of ALARA. COMPARISON: No relevant prior studies available. FINDINGS: No acute intracranial hemorrhage. No midline shift or mass effect. The territorial petersen-white matter differentiation is maintained throughout. Age-related cerebral volume loss. Periventricular and subcortical white matter hypoattenuation, consistent with chronic microangiopathy. The visualized orbits appear grossly unremarkable. LEFT periorbital soft tissue swelling. The calvarium is intact. The visualized paranasal sinuses and mastoid air cells are grossly clear. IMPRESSION: No acute intracranial hemorrhage, midline shift, or mass effect. LEFT periorbital soft tissue swelling. Electronically signed by: Satya Reyes MD 05/13/23 20:19 PM Shoulder X-Ray 05/13/23 19:53 RIGHT SHOULDER 3 VIEWS CLINICAL HISTORY: Trauma. Fall. FINDINGS: 3 views of the right shoulder are obtained. No prior studies are available for comparison at the time of dictation. The skeletal structures are osteopenic. There is an impacted and comminuted fracture of the right humeral head and neck. There are mildly displaced fragments. Overlying soft tissue edema is observed. No additional fracture is seen. There is no dislocation. Mild degenerative change is noted at the glenohumeral and acromioclavicular joints. There are chronic/healed right-sided rib fractures. The right lung parenchyma is clear as visualized. IMPRESSION: Right humeral head and neck fracture as above. Electronically signed by: Gavin Florentino M.D. 05/13/2023 10:06 PM PG Care Time/CCT Total # of Minutes Spent Total Time Spent with Patient: Total time spent is greater than 50% in coordination of care (as documented) at patient's floor/unit and/or counseling patient: Coding Level of Care Code 71742 INT INP/OBS CARE 2/55MIN Diagnoses Humerus fracture S42.309A Contusion of face S00.83XA Alzheimer's dementia G30.9; F02.80
[2023-05-13] MEDS ORDERED: ALPRAZolam 0.5 MG TABLET PO STA (23:51)
[2023-05-13] MEDS ORDERED: OLANZAPINE 2.5 MG TAB PO STA (23:52)
[2023-05-13] MEDS ORDERED: cefTRIAXone SODIUM 1,000 MG in DEXTROSE 5% AD-VAN 50 ML IV STA (23:57)
[2023-05-14] MEDS ORDERED: GELATIN SPONGE 12-7MM ONE (01:09)
[2023-05-14] MEDS ORDERED: LABETALOL HCL IV 5 MG/ML 20ML IV STA ×2 (02:15→06:38)
[2023-05-14] MEDS ORDERED: TXA 10% Non-IV Routes 100 MG/ML VIAL TOP ONE (02:41)
[2023-05-14] MEDS ORDERED: ONDANSETRON INJ 2 MG/ML 2 ML VIAL IV PRN (02:54)
[2023-05-14] MEDS: MoRPHine SULFATE 2 MG/ML CARP IV PRN ×2 (06:11→16:02)
[2023-05-14 07:18] LABS: Hemoglobin 11.9 g/dl (12.0-16.0); Mean Corpuscular Hemoglobin 30.7 pg (25.0-34.0); Mean Corpuscular Hgb Conc 32.2 g/dL (32.0-36.0); Mean Corpuscular Volume 95.6 fL (80.0-100.0); Mean Platelet Volume 10.8 fL (9.4-12.4); Platelet Count 235 K/uL (130-400); RDW Coefficient of Variation 13.2 % (11.5-14.5); RDW Standard Deviation 46.3 fL (36.4-46.3); Red Blood Count 3.87 M/uL (4.20-5.40); White Blood Count 13.03 K/ul (4.8-10.8)
[2023-05-14] MEDS: SERTRALINE HCL 100 MG TABLET PO SCH (07:59)
[2023-05-14] MEDS: LEVOTHYROXINE SODIUM 112 MCG TABLET PO SCH (07:59)
[2023-05-14] MEDS: OLANZAPINE 2.5 MG TAB PO SCH ×3 (07:59→21:19)
[2023-05-14] MEDS: PROPRANOLOL HCL 20 MG TAB PO SCH ×2 (08:00→21:19)
[2023-05-14 08:03] LABS: Calcium 8.9 mg/dl (8.6-10.3); Potassium 4.1 mmol/L (3.5-5.1)
[2023-05-14 08:09] LABS: BUN Creatinine Ratio 24.1 (10-20); Creatinine Clr Calc Pharmacy 33.2 ml/min; Est GFR (African American) 49.7 ml/min; Est GFR (Non-African American) 42.9 ml/min
[2023-05-14] MEDS ORDERED: PNEUMOCOCCAL Polysaccharide Vaccine 25mcg/0.5mL vial/Syr IM ONE (10:45)
--- NOTE | 2023-05-14 11:57 | Orthopedic Consultation ---
Date of Service May 14, 2023 Assessment & Plan (1) Infection of great toe: I was unable to aspirate any fluid from the IP joint of the right great toe. Concerns for infection vs. gout. She shows evidence of erosions of the IP joint but no hx of gout. WBC elevated on hematology testing. May consider MRI of the of the toe to look at osteomyelitis. Consider uric acid labs. Consider starting on imperic abx for a couple days to see if toe responds to abx. History of Present Illness Reason for Consultation: . Requesting Physician: . Attending Physician: Myriam Seymour DO Mona is an 87 y/o female who was admitted to [facility] for other medical issues. She states that she has has a swollen painful right toe for the past 2 weeks. She states that she had no injury to the toe nor did she appreciate and wounds in that area. She has no history of gout. She states that the swelling did resolve after about a week but then immediately flared right back up when she started wearing shoes again. She denies any fever, sweats, chills. Allergies Allergy/AdvReac Type Severity Reaction Status Date / Time atorvastatin Allergy Unknown ON CENTRE Verified 05/13/23 20:52 CARE MED LIST erythromycin base Allergy Unknown ON CENTRE Verified 05/13/23 20:52 CARE MED LIST Iodinated Contrast Media Allergy Unknown ON CENTRE Verified 05/13/23 20:52 CARE MED LIST--RADIOPAQUE IODINE. pravastatin Allergy Unknown ON CENTRE Verified 05/13/23 20:52 CARE MED LIST simvastatin Allergy Unknown ON CENTRE Verified 05/13/23 20:52 CARE MED LIST Home Medications Medication Instructions Recorded Confirmed Type acetaminophen 325 mg tablet 650 mg PO Q6H PRN PAIN/TEMP >100F. 05/13/23 05/13/23 History (Tylenol) acetaminophen 500 mg tablet 1,000 mg PO QAM 05/13/23 05/13/23 History (Tylenol Extra Strength) alprazolam 0.5 mg tablet 0.5 mg PO BID 05/13/23 05/13/23 History atorvastatin 20 mg tablet 20 mg PO HS 05/13/23 05/13/23 History cromolyn 4 % eye drops 2 drp OPB QID 05/13/23 05/13/23 History ferrous sulfate 325 mg (65 mg 325 mg PO QDL 05/13/23 05/13/23 History iron) tablet levothyroxine 112 mcg tablet 112 mcg PO DAILY 05/13/23 05/13/23 History linagliptin 5 mg tablet (Tradjenta) 5 mg PO QAM 05/13/23 05/13/23 History magnesium oxide 400 mg PO DAILY 05/13/23 05/13/23 History melatonin 5 mg tablet 10 mg PO HS 05/13/23 05/13/23 History olanzapine 2.5 mg tablet (Zyprexa) 2.5 mg PO BID 05/13/23 05/13/23 History propranolol 40 mg tablet 40 mg PO Q12H 05/13/23 05/13/23 History rivaroxaban 15 mg tablet (Xarelto) 15 mg PO PM 05/13/23 05/13/23 History sertraline 100 mg tablet 100 mg PO DAILY 05/13/23 05/13/23 History Past Med/Surg History Medical History Alzheimer's dementia Atrial flutter Legal blindness Lung cancer Surgical History (Updated 05/14/23 @ 03:00 by Myriam Seymour DO) History of lobectomy of lung Family History (Updated 05/14/23 @ 03:01 by Myriam Seymour DO) Other Family history non-contributory Social History Smoking Status: Unknown if ever smoked Hx Alcohol Use: No Hx Substance Use: No Preferred Language: Ethiopian Communication Ability: Impaired Communication Ability Comment: hx dementia, difficulty following commands 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 Physical Exam swollen right great toe at the IP joint. Pain to palpation around the joint space. Erythema of the skin as well as skin sloughing around the great toe. Neurovascularly intact Results & Data Results & Data Laboratory Results . Diagnostic Findings . PG Care Time/CCT Total # of Minutes Spent Total Time Spent with Patient: Total time spent is greater than 50% in coordination of care (as documented) at patient's floor/unit and/or counseling patient: Coding Diagnoses Infection of great toe L08.9
--- NOTE | 2023-05-14 12:06 | Orthopedic Consultation ---
Date of Service May 14, 2023 Assessment & Plan (1) Humerus fracture: Continue with arm sling for comfort Continue with pain control measures This is a non surgical fracture that can be treated conservatively with time and PT in the future Would like to have her follow up in [facility] orthopedic office after discharge Recommend followup with either Dr. Lorenzo or Dr. Han in our office. History of Present Illness Reason for Consultation: . Requesting Physician: . Attending Physician: Myriam Seymour DO Patient is an 87 y/o female resident at [facility]. She had an unwitnessed fall yesterday. She sustained a multiple lacerations on her face and head. She has complaints of right shoulder pain. Xrays were obtained and showed a displaced right proximal humerus fracture. She is currently in the ER waiting for a bed upstairs. Allergies Allergy/AdvReac Type Severity Reaction Status Date / Time atorvastatin Allergy Unknown ON CENTRE Verified 05/13/23 20:52 CARE MED LIST erythromycin base Allergy Unknown ON CENTRE Verified 05/13/23 20:52 CARE MED LIST Iodinated Contrast Media Allergy Unknown ON CENTRE Verified 05/13/23 20:52 CARE MED LIST--RADIOPAQUE IODINE. pravastatin Allergy Unknown ON CENTRE Verified 05/13/23 20:52 CARE MED LIST simvastatin Allergy Unknown ON CENTRE Verified 05/13/23 20:52 CARE MED LIST Home Medications Medication Instructions Recorded Confirmed Type acetaminophen 325 mg tablet 650 mg PO Q6H PRN PAIN/TEMP >100F. 05/13/23 05/13/23 History (Tylenol) acetaminophen 500 mg tablet 1,000 mg PO QAM 05/13/23 05/13/23 History (Tylenol Extra Strength) alprazolam 0.5 mg tablet 0.5 mg PO BID 05/13/23 05/13/23 History atorvastatin 20 mg tablet 20 mg PO HS 05/13/23 05/13/23 History cromolyn 4 % eye drops 2 drp OPB QID 05/13/23 05/13/23 History ferrous sulfate 325 mg (65 mg 325 mg PO QDL 05/13/23 05/13/23 History iron) tablet levothyroxine 112 mcg tablet 112 mcg PO DAILY 05/13/23 05/13/23 History linagliptin 5 mg tablet (Tradjenta) 5 mg PO QAM 05/13/23 05/13/23 History magnesium oxide 400 mg PO DAILY 05/13/23 05/13/23 History melatonin 5 mg tablet 10 mg PO HS 05/13/23 05/13/23 History olanzapine 2.5 mg tablet (Zyprexa) 2.5 mg PO BID 05/13/23 05/13/23 History propranolol 40 mg tablet 40 mg PO Q12H 05/13/23 05/13/23 History rivaroxaban 15 mg tablet (Xarelto) 15 mg PO PM 05/13/23 05/13/23 History sertraline 100 mg tablet 100 mg PO DAILY 05/13/23 05/13/23 History Past Med/Surg History Medical History Alzheimer's dementia Atrial flutter Legal blindness Lung cancer Surgical History (Updated 05/14/23 @ 03:00 by Myriam Seymour DO) History of lobectomy of lung Family History (Updated 05/14/23 @ 03:01 by Myriam Seymour DO) Other Family history non-contributory Social History Smoking Status: Unknown if ever smoked Hx Alcohol Use: No Hx Substance Use: No Preferred Language: Spanish Communication Ability: Impaired Communication Ability Comment: hx dementia, difficulty following commands Cleaner Operator Required: No Current [facility] Situation[facility] Current Living Situation Comment: locked dementia unit Feels Safe at Home: Yes Review of Systems All systems reviewed & are unremarkable except as noted in HPI & below. Physical Exam Patient was not alert but conversant when interviewed and examined at bedside. She is in a sling. No deformity noted on inspection of the right shoulder. Patient has appreciable pain with minimal forward elevation, internal/external rotation of the shoulder. Neurovascularly intact Results & Data Results & Data Laboratory Results . Diagnostic Findings . PG Care Time/CCT Total # of Minutes Spent Total Time Spent with Patient: Total time spent is greater than 50% in coordination of care (as documented) at patient's floor/unit and/or counseling patient: Coding Level of Care Code 96873 OFFICE CONSULT LVL 01/29M Diagnoses Humerus fracture S42.309A
--- NOTE | 2023-05-14 12:19 | Electrocardiogram Report ---
Test Reason : Blood Pressure : / mmHG Vent. Rate : 083 BPM Atrial Rate : 352 BPM P-R Int : 000 ms QRS Dur : 080 ms QT Int : 336 ms P-R-T Axes : 000 -55 -08 degrees QTc Int : 394 ms Atrial fibrillation Left axis deviation Low voltage QRS Abnormal ECG No previous ECGs available Confirmed by Samuel Wise ([id number]) on 05/14/2023 12:18:29 PM Referred By: REFERRED SELF Confirmed By:Rex Wise
--- NOTE | 2023-05-14 13:52 | XRay Report ---
XR shoulder RT 1V HISTORY: 87 years-old Female pain, transcapular lateral COMPARISON: 05/13/2023 TECHNIQUE: One view of the right shoulder FINDINGS: Similar alignment of the visualized acute comminuted proximal right humeral fracture, suboptimally vi sualized on this single view. The visualized scapula appears intact. 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 IMPRESSION: 1. No acute scapular fracture identified. 2. Acute and comminuted right proximal humeral fracture redemonstrated. ACT 112: Negative or not required by law. The above report was generated using voice recognition software. It may contain grammatical, syntax o r spelling errors. Electronically signed by: Diego Troncoso M.D. 05/14/2023 1:51 PM
--- NOTE | 2023-05-14 14:50 | Hospitalist Progress Note ---
Date of Service May 14, 2023 Assessment & Plan (1) Humerus fracture: Plan: Right humerus fracture from mechanical fall. Orthopedic consultation appreciated. Nonsurgical at this time. Pain control measures indicated along with a sling. (2) Contusion of face: Plan: Laceration in the left eyebrow area has been sutured. She has extensive contusion and bruising about the left face with a large left periorbital hematoma. Ice application ordered. Symptomatic care. Xarelto has been discontinued. (3) Alzheimer's dementia: Plan: Supportive care. Plan Eventual return to [facility] Alzheimer's unit. Admission and Anticipated Discharge Date Admission Date: May 13, 2023 Subjective Baseline dementia. Family is at the bedside. She has significant protruding ecchymoses and soft tissue hematoma about the left eye. Sutures in place above the left eye in the eyebrow area. Ice packs ordered. Xarelto has been discontinued. Orthopedic consultation noted. Right humerus fracture is nonsurgical and will be treated with conservative therapy and a sling. Review of Systems Review of Systems: The patient is unable to answer any questions regarding review of systems at this time Physical Exam Physical Exam: General-baseline severe dementia. She is awakes HEENT-extensive ecchymoses left face with swelling about the left eye and a large protruding left periorbital hematoma. Laceration above the left eye is sutured with dried blood and some oozing. Pupils equal and reactive to light, extraocular muscles intact Neck-no lymphadenopathy or thyromegaly, trachea midline Chest-clear to auscultation percussion. No rales wheezing or rhonchi Cardiac-regular rate and rhythm, normal S1 and S2 Abdomen-normal bowel sounds, nontender, no hepatosplenomegaly Extremities-no cyanosis, clubbing, or edema Neuro-moving all extremities randomly. No apparent focal deficits Psych-baseline dementia and confusion Results & Data Results & Data Vital Signs (Past 12 Hours) Vital Signs Temp Pulse Pulse Resp BP BP Pulse Ox 05/14/23 11:28 75 05/14/23 09:00 97 H 21 128/82 97 05/14/23 08:00 104 H 157/100 H 05/14/23 07:40 37.1 C 98 H 21 161/119 H 96 05/14/23 07:03 109 H 05/14/23 06:31 112 H 16 149/112 H 93 05/14/23 04:00 125 H 18 156/105 H 95 05/14/23 03:00 126 H 18 174/128 H 96 05/14/23 02:49 124 H 138/112 H O2 Del Method 05/14/23 11:28 05/14/23 09:00 Room Air 05/14/23 08:00 05/14/23 07:40 05/14/23 07:03 05/14/23 06:31 Room Air 05/14/23 04:00 Room Air 05/14/23 03:00 Room Air 05/14/23 02:49 Laboratory Results 05/14/23 06:55 05/14/23 06:55 PG Care Time/CCT Total # of Minutes Spent Total Time Spent with Patient: Total time spent is greater than 50% in coordination of care (as documented) at patient's floor/unit and/or counseling patient: Coding Level of Care Code 75515 SUB INP/OBS CARE 3/50MIN Diagnoses Humerus fracture S42.309A Contusion of face S00.83XA Alzheimer's dementia G30.9; F02.80
[2023-05-14] MEDS: ALPRAZolam 0.5 MG TABLET PO SCH ×3 (16:06→21:19)
[2023-05-14] MEDS ORDERED: Nursing to Pharmacy Communication SCH (18:30)
[2023-05-14] MEDS: ATORVASTATIN 20 MG TAB PO SCH (21:20)
[2023-05-14] MEDS: MELATONIN 3 MG TAB PO SCH (21:20)
[2023-05-14] MEDS: cefTRIAXone SODIUM 1,000 MG in DEXTROSE 5% AD-VAN 50 ML IV SCH (23:19)
[2023-05-15] MEDS: MoRPHine SULFATE 2 MG/ML CARP IV PRN ×2 (04:28→17:42)
[2023-05-15] MEDS: LEVOTHYROXINE SODIUM 112 MCG TABLET PO SCH (09:46)
[2023-05-15] MEDS: OLANZAPINE 2.5 MG TAB PO SCH ×2 (09:46→20:19)
[2023-05-15] MEDS: SERTRALINE HCL 100 MG TABLET PO SCH (09:47)
[2023-05-15] MEDS: PROPRANOLOL HCL 20 MG TAB PO SCH ×2 (09:52→20:19)
[2023-05-15 10:24] LABS: Basophils # (auto) 0.06 K/uL (0-0.2); Basophils % (auto) 0.5 %; Eosinophils # (auto) 0.19 K/uL (0-0.50); Eosinophils % (auto) 1.6 %; Hematocrit (blood only) 34.7 % (37.0-47.0); Hemoglobin 11.2 g/dl (12.0-16.0); Immature Granulocytes # (auto) 0.11 K/uL (0.01-0.20); Immature Granulocytes % (auto) 0.9 %; Lymphocytes # (auto) 1.74 K/uL (1.2-3.4); Lymphocytes % (auto) 14.3 %; Mean Corpuscular Hemoglobin 30.5 pg (25.0-34.0); Mean Corpuscular Hgb Conc 32.3 g/dL (32.0-36.0); Mean Corpuscular Volume 94.6 fL (80.0-100.0); Mean Platelet Volume 10.7 fL (9.4-12.4); Monocytes # (auto) 1.75 K/uL (0.11-0.59); Monocytes % (auto) 14.4 %; Neutrophils # (auto) 8.29 K/uL (1.40-6.50); Neutrophils % (auto) 68.3 %; Platelet Count 230 K/uL (130-400); RDW Coefficient of Variation 13.2 % (11.5-14.5); RDW Standard Deviation 45.7 fL (36.4-46.3); Red Blood Count 3.67 M/uL (4.20-5.40); White Blood Count 12.14 K/ul (4.8-10.8)
[2023-05-15 10:37] LABS: Calcium 9.1 mg/dl (8.6-10.3); Creatinine Clr Calc Pharmacy 40.1 ml/min; Est GFR (African American) 62.5 ml/min; Est GFR (Non-African American) 53.9 ml/min; Potassium 4.3 mmol/L (3.5-5.1)
--- NOTE | 2023-05-15 14:03 | Hospitalist Progress Note ---
Date of Service May 15, 2023 Assessment & Plan (1) Humerus fracture: Plan: Right humerus fracture from mechanical fall. Orthopedic consultation appreciated. Nonsurgical at this time. Pain control measures indicated along with a sling. (2) Contusion of face: Plan: Laceration in the left eyebrow area has been sutured. She has extensive contusion and bruising about the left face. The left periorbital hematoma present on admission has flattened considerably. Will discontinue ice applications now. Symptomatic care. Xarelto has been discontinued permanently (3) UTI (urinary tract infection): Plan: Present on admission. Uncomplicated. Citrobacter isolated. Continue Rocephin, day 2 (4) Alzheimer's dementia: Plan: Supportive care. Plan Eventual return to [facility] Alzheimer's unit. This will probably occur early next week. She is admitted from observation status Admission and Anticipated Discharge Date Admission Date: May 15, 2023 Subjective Alert. No distress. Baseline dementia. Legally blind. Review of Systems Review of Systems: The patient is unable to answer any questions reliably regarding review of systems Physical Exam Physical Exam: General-baseline severe dementia. She is awake. No distress HEENT-extensive ecchymoses left face with swelling about the left eye . The large protruding left periorbital hematoma present on admission has flattened considerably.. Laceration above the left eye is sutured with dried blood. Oozing has stopped. She is legally blind Neck-no lymphadenopathy or thyromegaly, trachea midline Chest-clear to auscultation percussion. No rales wheezing or rhonchi Cardiac-regular rate and rhythm, normal S1 and S2 Abdomen-normal bowel sounds, nontender, no hepatosplenomegaly Extremities-right arm is in a sling due to right proximal humerus fracture Neuro- No apparent focal deficits Psych-baseline dementia and confusion Results & Data Results & Data Vital Signs (Past 12 Hours) Vital Signs Pulse Ox O2 Flow Rate 05/15/23 10:30 95 2 Laboratory Results 05/15/23 09:54 05/15/23 09:54 PG Care Time/CCT Total # of Minutes Spent Total Time Spent with Patient: Total time spent is greater than 50% in coordination of care (as documented) at patient's floor/unit and/or counseling patient: Coding Level of Care Code 77435 SUB INP/OBS CARE 3/50MIN Diagnoses Humerus fracture S42.309A Contusion of face S00.83XA UTI (urinary tract infection) N39.0 Alzheimer's dementia G30.9; F02.80
[2023-05-15] MEDS: ALPRAZolam 0.5 MG TABLET PO SCH ×2 (16:24→20:19)
[2023-05-15] MEDS: MELATONIN 3 MG TAB PO SCH (20:18)
[2023-05-15] MEDS: ATORVASTATIN 20 MG TAB PO SCH (20:19)
[2023-05-16] MEDS: cefTRIAXone SODIUM 1,000 MG in DEXTROSE 5% AD-VAN 50 ML IV SCH ×2 (00:34→23:38)
[2023-05-16] MEDS: LEVOTHYROXINE SODIUM 112 MCG TABLET PO SCH (05:59)
[2023-05-16] MEDS: PROPRANOLOL HCL 20 MG TAB PO SCH ×2 (08:12→19:42)
[2023-05-16] MEDS: SERTRALINE HCL 100 MG TABLET PO SCH (08:12)
[2023-05-16] MEDS: OLANZAPINE 2.5 MG TAB PO SCH ×2 (08:12→19:35)
[2023-05-16 08:21] LABS: Basophils # (auto) 0.06 K/uL (0-0.2); Basophils % (auto) 0.5 %; Eosinophils # (auto) 0.25 K/uL (0-0.50); Eosinophils % (auto) 1.9 %; Hematocrit (blood only) 34.3 % (37.0-47.0); Hemoglobin 11.1 g/dl (12.0-16.0); Immature Granulocytes # (auto) 0.35 K/uL (0.01-0.20); Immature Granulocytes % (auto) 2.7 %; Lymphocytes # (auto) 1.55 K/uL (1.2-3.4); Lymphocytes % (auto) 11.8 %; Mean Corpuscular Hgb Conc 32.4 g/dL (32.0-36.0); Mean Corpuscular Volume 95.8 fL (80.0-100.0); Mean Platelet Volume 10.5 fL (9.4-12.4); Monocytes # (auto) 1.74 K/uL (0.11-0.59); Monocytes % (auto) 13.2 %; Neutrophils # (auto) 9.21 K/uL (1.40-6.50); Neutrophils % (auto) 69.9 %; Platelet Count 216 K/uL (130-400); RDW Coefficient of Variation 13.1 % (11.5-14.5); RDW Standard Deviation 46.2 fL (36.4-46.3); Red Blood Count 3.58 M/uL (4.20-5.40); White Blood Count 13.16 K/ul (4.8-10.8)
[2023-05-16 08:49] LABS: Calcium 8.8 mg/dl (8.6-10.3); Potassium 4.2 mmol/L (3.5-5.1)
[2023-05-16 08:54] LABS: BUN Creatinine Ratio 24.5 (10-20); Est GFR (African American) 64.1 ml/min; Est GFR (Non-African American) 55.3 ml/min
--- NOTE | 2023-05-16 12:06 | Hospitalist Progress Note ---
Date of Service May 16, 2023 Assessment & Plan (1) Humerus fracture: Plan: Right humerus fracture from mechanical fall. Orthopedic consultation appreciated. Nonsurgical at this time. Pain control measures indicated along with a sling. (2) Contusion of face: Plan: Laceration in the left eyebrow area has been sutured. She has extensive contusion and bruising about the left face. The left periorbital hematoma present on admission has flattened considerably. Symptomatic care. Xarelto has been discontinued permanently (3) UTI (urinary tract infection): Plan: Present on admission. Uncomplicated. Citrobacter isolated. Continue Rocephin, day 3. She will complete her antibiotic course during this hospital stay (4) Alzheimer's dementia: Plan: Supportive care. Plan [facility]. This will probably occur on Thursday. Admission and Anticipated Discharge Date Admission Date: May 15, 2023 Subjective No new problems. Stable overall. I spoke to the patient's daughter, Mickie, by phone. She will probably [facility] to [facility]. Xarelto will be discontinued indefinitely. She remains on Rocephin, day 3, for the Citrobacter UTI. Hemoglobin is stable Review of Systems Review of Systems: The patient is unable to answer any questions reliably regarding review of systems Physical Exam Physical Exam: General-baseline severe dementia. She is awake. No distress HEENT-extensive ecchymoses left face with swelling about the left eye . The large protruding left periorbital hematoma present on admission has flattened considerably.. Laceration above the left eye is sutured with dried blood. Oozing has stopped. She is legally blind Neck-no lymphadenopathy or thyromegaly, trachea midline Chest-clear to auscultation percussion. No rales wheezing or rhonchi Cardiac-regular rate and rhythm, normal S1 and S2 Abdomen-normal bowel sounds, nontender, no hepatosplenomegaly Extremities-right arm is in a sling due to right proximal humerus fracture Neuro- No apparent focal deficits Psych-baseline dementia and confusion Results & Data Results & Data Vital Signs (Past 12 Hours) Vital Signs Temp Pulse Resp BP Pulse Ox O2 Del Method O2 Flow Rate 05/16/23 07:51 Nasal Cannula 2 05/16/23 07:26 36.8 C 104 H 16 123/76 98 Nasal Cannula 2 Laboratory Results 05/16/23 08:00 07/15/23 08:00 PG Care Time/CCT Total # of Minutes Spent Total Time Spent with Patient: Total time spent is greater than 50% in coordination of care (as documented) at patient's floor/unit and/or counseling patient: Coding Level of Care Code 02983 SUB INP/OBS CARE 2/35MIN Diagnoses Humerus fracture S42.309A Contusion of face S00.83XA UTI (urinary tract infection) N39.0 Alzheimer's dementia G30.9; F02.80
[2023-05-16] MEDS: ALPRAZolam 0.5 MG TABLET PO SCH ×2 (15:56→19:34)
[2023-05-16] MEDS: MoRPHine SULFATE 2 MG/ML CARP IV PRN (18:20)
[2023-05-16] MEDS: MELATONIN 3 MG TAB PO SCH (19:34)
[2023-05-16] MEDS: ATORVASTATIN 20 MG TAB PO SCH (19:36)
--- NOTE | 2023-05-16 21:02 | XRay Report ---
XR humerus LT 2V, XR forearm LT 2V, XR wrist LT min 3V routine, XR hand LT min 3V routine CLINICAL HISTORY: L upper extremity pain. Fall. COMPARISON STUDY: None. FINDINGS: The bones are osteopenic. There is soft tissue swelling within the left wrist. No elbow eff usion. There is nondisplaced fracture at the dorsum of the triquetral bone. No fracture or dislocatio n within the left humerus or left forearm. Advanced degenerative changes at the STT joint. No additio nal fractures identified within the left hand. IMPRESSION: 1. Nondisplaced fracture at the dorsum of the triquetral bone. 2. Dorsal soft tissue swelling within the left wrist. 2. No fractures identified within the left humerus, left forearm, or left hand. ACT 112: Negative or not required by law. Electronically signed by: Mohsen Villanueva M.D. 05/16/2023 8:59 PM
[2023-05-16] MEDS ORDERED: SODIUM CHLORIDE 0.9% 1000ML 250 ML IV ONE (23:13)
[2023-05-16] MEDS: ACETAMINOPHEN 325 MG TAB PO PRN (23:17)
[2023-05-17] MEDS ORDERED: LACTATED RINGER'S 250 ML IV ONE (00:55)
[2023-05-17 01:50] LABS: Basophils # (auto) 0.05 K/uL (0-0.2); Basophils % (auto) 0.4 %; Eosinophils # (auto) 0.14 K/uL (0-0.50); Hematocrit (blood only) 28.7 % (37.0-47.0); Hemoglobin 9.3 g/dl (12.0-16.0); Immature Granulocytes # (auto) 0.16 K/uL (0.01-0.20); Immature Granulocytes % (auto) 1.1 %; Lymphocytes # (auto) 1.64 K/uL (1.2-3.4); Lymphocytes % (auto) 11.6 %; Mean Corpuscular Hemoglobin 30.8 pg (25.0-34.0); Mean Corpuscular Hgb Conc 32.4 g/dL (32.0-36.0); Mean Platelet Volume 10.5 fL (9.4-12.4); Monocytes # (auto) 2.32 K/uL (0.11-0.59); Monocytes % (auto) 16.4 %; Neutrophils # (auto) 9.86 K/uL (1.40-6.50); Neutrophils % (auto) 69.5 %; Platelet Count 221 K/uL (130-400); RDW Coefficient of Variation 12.9 % (11.5-14.5); RDW Standard Deviation 44.9 fL (36.4-46.3); Red Blood Count 3.02 M/uL (4.20-5.40); White Blood Count 14.17 K/ul (4.8-10.8)
[2023-05-17 02:05] LABS: BUN Creatinine Ratio 25.5 (10-20); C Reactive Protein 9.36 mg/dl (0-0.5); Calcium 8.8 mg/dl (8.6-10.3); Creatinine Clr Calc Pharmacy 37.7 ml/min; Est GFR (African American) 58.1 ml/min; Est GFR (Non-African American) 50.1 ml/min; Potassium 3.9 mmol/L (3.5-5.1)
[2023-05-17 02:20] LABS: INR 1.1 (0.9-1.1); Prothrombin Time 11.9 Seconds (9.0-12.0)
[2023-05-17] MEDS ORDERED: LACTATED RINGER'S 500 ML IV ONE ×2 (02:23→03:59)
[2023-05-17] MEDS ORDERED: VANCOMYCIN CONSULT ACTIVE PRN (02:49)
[2023-05-17] MEDS ORDERED: VANCOMYCIN HCL 1,250 MG in SODIUM CHLORIDE 0.9% 500 ML IV ONE (02:49)
[2023-05-17] MEDS ORDERED: VANCOMYCIN HCL 1,250 MG in SODIUM CHLORIDE 0.9% 250 ML IV ONE (03:00)
[2023-05-17] MEDS ORDERED: CEFEPIME 2,000 MG in SYRINGE 0 ML IV SCH (03:15)
--- NOTE | 2023-05-17 03:19 | Communication Note ---
Date of Service: May 17, 2023 Called to assess patient at approximately 11 PM on 05/16/2023. Nursing stating that the patient is tachycardic and has an irregular rhythm. Patient has a h istory of atrial flutter. For this reason, an EKG was ordered which confirmed atrial fibrillation with RVR at a rate of 115 bpm. Other vitals were stable at this time. Given that the patient was already given propranolol and had soft blood pressures, I attempted to decrease the rate by giving her a small bolus of 250 cc of normal saline. I was cautious when giving fluid as her chest x-ray on admission showed cardiomegaly and there is no echocardiogram on admission so unsure of her history of congestive heart failure or ejection fraction. After giving her a bolus of 250 cc of normal saline, her weight did decrease down to the 90s, however, her blood pressure dropped to 90/56. For this reason additional 250 cc of lactated Ringer's was given and blood pressure was rechecked and down to 82/51. Patient also through a fever at 38.1 C. Given that she was newly tachycardic, hypotensive, and febrile, reevaluated sepsis work-up and ordered additional labs including her a.m. labs, chest x-ray PT/INR, procalcitonin, CRP, and blood/urine cultures. Her exam at the time of this being done was that the patient was quite lethargic and arousable to pain. Chest x-ray did not show a new pneumonia. Albeit positioning of the patient and the x-ray was not ideal as she was slouched and leaning to the left which was done again on a repeat chest x-ray. Hemoglobin was significant from a drop of 11.1-9.3 over the course of 18 hours. Kidney function remained stable with a creatinine of 1.02. C-reactive protein came back elevated at 9.36. Procalcitonin negative at 0.05. Given that her blood pressure still remained low, an additional 500 cc of lactated Ringer was given and her blood pressure improved to a map of 69. Because of her worsening infectious picture, broaden antibiotics to cefepime plus vancomycin. Per recommendations from pharmacy, Citrobacter is a bacteria that is considered high risk and should not be treated with Rocephin even if it is considered sensitive based off of treatment guidelines from the IDSA for treatment of antimicrobial resistant gram-negative infections. The recommended antibiotic for high risk cases is cefepime. Patient was transferred to telemetry given her A-fib with RVR and worsening clinical picture. At the time of writing this note, patient is hemodynamically stable and improved. We will continue to monitor through the night.
[2023-05-17] MEDS: CEFEPIME 2,000 MG in SYRINGE 0 ML IV SCH ×2 (03:25→14:16)
[2023-05-17 03:30] LABS: Appearance Urine Cloudy (Clear); Bacteria Urine Automated Negative (Negative); Bilirubin Urine Negative (Negative); Blood Urine Trace (Negative); Color Urine Dark Yellow; Epithelial Cell Urine Auto 20-30 /lpf (0-5); Glucose Urine UA Negative (Negative); Ketones Urine Negative (Negative); Leukocyte Esterase Urine 2+ (Negative); Nitrite Urine Negative (Negative); Protein Urine Trace (Negative); RBC Urine Automated 0-4 /hpf (0-4); Urobilinogen Urine Negative (Negative); WBC Urine Automated >30 /hpf (0-5); pH Urine 5.5 (4.5-7.5)
[2023-05-17] MEDS: LEVOTHYROXINE SODIUM 112 MCG TABLET PO SCH (06:32)
[2023-05-17] MEDS: PROPRANOLOL HCL 20 MG TAB PO SCH ×2 (08:27→20:12)
[2023-05-17] MEDS: SERTRALINE HCL 100 MG TABLET PO SCH (08:27)
[2023-05-17] MEDS: OLANZAPINE 2.5 MG TAB PO SCH ×2 (08:27→20:12)
--- NOTE | 2023-05-17 10:05 | Pharmacy Report ---
Pharmacy PK ABX Note - Date of Service May 17, 2023 - Assessment and Plan Assessment 87 year old F receiving vancomycin and cefepime empirically in setting of fevers and hypotension last night. 05/13 urine culture (+) Citrobacter freundii. Blood cultures pending. Day #1 of antimicrobial therapy. Plan Vancomycin * Loading dose: 1250 mg IV x 1 * Maintenance dose: 1000 mg IV every 24 hours * Regimen is predicted to achieve target AUC/CHAU of 400-600 mg/L.hr * Will obtain a level around steady state or sooner if clinically indicated. Pharmacy will continue to follow and will adjust dose/frequency as necessary. Thank you. Pharmacy has transitioned to AUC monitoring for vancomycin. AUC/CHAU is the preferred PK/PD target and is associated with decreased risk of nephrotoxicity compared to traditional trough targets.
[2023-05-17] MEDS: MoRPHine SULFATE 2 MG/ML CARP IV PRN ×2 (10:40→20:41)
--- NOTE | 2023-05-17 10:44 | XRay Report ---
XR chest 1V portable CLINICAL HISTORY: Sepsis workup TECHNIQUE: Single frontal radiograph of the chest was obtained. Comparison: Comparison is made to chest radiograph 05/13/2023 FINDINGS: No lines and tubes are seen. Cardiomegaly is noted. The aortic arch is calcified. Airspace opacity is seen in the left lower lung. No evidence of pleural effusion or pneumothorax. Partial visualization of right humeral fracture. IMPRESSION: Left lower lung airspace opacity may represent atelectasis, pneumonia, and/or aspiration. ACT 112: Negative or not required by law. Electronically signed by: Jacky Baldwin M.D. 05/17/2023 10:42 AM
--- NOTE | 2023-05-17 10:51 | XRay Report ---
XR chest 1V portable CLINICAL HISTORY: Repeat, poor imaging-posture. TECHNIQUE: Single frontal radiograph of the chest was obtained. Comparison: Comparison is made to chest radiograph 05/17/2023 FINDINGS: No lines and tubes are seen. Cardiomegaly is noted. The aortic arch is calcified. Left retrocardiac o pacity is again seen. No evidence of pleural effusion or pneumothorax. IMPRESSION: Left retrocardiac opacity. which may represent atelectasis, pneumonia, and/or aspiration. ACT 112: Negative or not required by law. Electronically signed by: Jacky Baldwin M.D. 05/17/2023 10:49 AM
--- NOTE | 2023-05-17 11:54 | Electrocardiogram Report ---
Test Reason : Blood Pressure : / mmHG Vent. Rate : 113 BPM Atrial Rate : 125 BPM P-R Int : 000 ms QRS Dur : 086 ms QT Int : 346 ms P-R-T Axes : 000 -73 -34 degrees QTc Int : 474 ms Atrial fibrillation with rapid ventricular response with premature ventricular or aberrantly conducte d complexes Left axis deviation Nonspecific ST and T wave abnormality Abnormal ECG When compared with ECG of 13-MAY-2023 19:34, Criteria for Inferior infarct are no longer Present Inverted T waves have replaced nonspecific T wave abnormality in Lateral leads Confirmed by Jorge Christensen ([id number]) on 05/17/2023 11:54:42 AM Referred By: REFERRED SELF Confirmed By:Jorge Christensen
[2023-05-17] MEDS: ALPRAZolam 0.5 MG TABLET PO SCH ×2 (13:04→20:12)
[2023-05-17] MEDS ORDERED: VANCOMYCIN HCL 1,000 MG in SODIUM CHLORIDE 0.9% 250 ML IV SCH (14:00)
--- NOTE | 2023-05-17 14:06 | Hospitalist Progress Note ---
Date of Service May 17, 2023 Assessment & Plan (1) UTI (urinary tract infection): Plan: Citrobacter isolated. Previously treated with Rocephin. Now on cefepime and v ancomycin until repeat cultures return (2) Atrial fibrillation: Plan: Recurrent A-fib flutter last evening with rapid ventricular rate. She has since converted to normal sinus rhythm. Telemetry. Continue current medical management (3) Humerus fracture: Plan: Right upper extremity. Orthopedic consultation appreciated. Nonsurgical. Right arm is currently in a sling (4) Alzheimer's dementia: Plan: Supportive care. She resides at the [facility] dementia unit (5) Contusion of face: Plan: Left facial contusion and diffuse ecchymoses with left periorbital hematoma which is resolving. Left eyebrow laceration is sutured and healing (6) Fall: Plan: Occurred on the dementia unit at [facility] Plan Eventual return to [facility] acute hospital within the next day or 2 Admission and Anticipated Discharge Date Admission Date: May 15, 2023 Subjective The patient had an episode of atrial fib flutter with rapid ventricular rate last evening and was transferred to room 202. She has since converted back to normal sinus rhythm. Repeat urine cultures and blood cultures were obtained and her antibiotics were switched to vancomycin and cefepime. X-rays of the left arm and left wrist were obtained at the family's request due to the patient complaining of left wrist pain. She does have a nondisplaced left wrist bone fracture. The left wrist is now immobilized. Orthopedics has been notified. Review of Systems Review of Systems: The patient cannot reliably answer any questions regarding review of systems due to severe baseline dementia Physical Exam Physical Exam: General-alert. Winces with discomfort due to left wrist pain with movement, no fevers, no chills HEENT-extensive left facial ecchymoses with suture left eyebrow laceration. Resolving left periorbital hematoma Neck-no lymphadenopathy or thyromegaly, trachea midline Chest-clear to auscultation percussion. No rales wheezing or rhonchi Cardiac-regular rate and rhythm, normal S1 and S2 Abdomen-normal bowel sounds, nontender, no hepatosplenomegaly Extremities-left wrist pain with palpitation and movement, right upper extremity in a sling Neuro-legally blind. No other focal deficits Psych-baseline severe dementia and disorientation Results & Data Results & Data Vital Signs (Past 12 Hours) Vital Signs Temp Pulse Pulse Pulse Resp BP BP 05/17/23 10:37 36.8 C 80 16 115/67 05/17/23 09:01 05/17/23 08:37 73 05/17/23 07:46 36.5 C 73 16 135/80 05/17/23 02:30 05/17/23 03:52 05/17/23 02:46 92 H 05/17/23 03:51 80 89/67 L 05/17/23 03:00 36.4 C L 61 16 100/54 L Pulse Ox O2 Del Method O2 Flow Rate 05/17/23 10:37 100 Nasal Cannula 2 05/17/23 09:01 Nasal Cannula 2 05/17/23 08:37 05/17/23 07:46 99 Nasal Cannula 2 05/17/23 02:30 Nasal Cannula 2 05/17/23 03:52 100 Nasal Cannula 2 05/17/23 02:46 05/17/23 03:51 05/17/23 03:00 93 Nasal Cannula 2 Laboratory Results 05/17/23 01:32 05/17/23 01:32 PG Care Time/CCT Total # of Minutes Spent Total Time Spent with Patient: Total time spent is greater than 50% in coordination of care (as documented) at patient's floor/unit and/or counseling patient: Coding Level of Care Code 86003 SUB INP/OBS CARE 3/50MIN Diagnoses UTI (urinary tract infection) N39.0 Atrial fibrillation I48.91 Humerus fracture S42.309A Alzheimer's dementia G30.9; F02.80 Contusion of face S00.83XA Fall W19.XXXA
[2023-05-17] MEDS: MELATONIN 3 MG TAB PO SCH (20:00)
[2023-05-17] MEDS: ATORVASTATIN 20 MG TAB PO SCH (20:12)
[2023-05-18] MEDS: CEFEPIME 2,000 MG in SYRINGE 0 ML IV SCH (02:52)
[2023-05-18 06:14] LABS: Basophils # (auto) 0.05 K/uL (0-0.2); Basophils % (auto) 0.5 %; Eosinophils # (auto) 0.42 K/uL (0-0.50); Eosinophils % (auto) 3.9 %; Hemoglobin 9.1 g/dl (12.0-16.0); Immature Granulocytes # (auto) 0.13 K/uL (0.01-0.20); Immature Granulocytes % (auto) 1.2 %; Lymphocytes # (auto) 1.64 K/uL (1.2-3.4); Lymphocytes % (auto) 15.1 %; Mean Corpuscular Hemoglobin 30.3 pg (25.0-34.0); Mean Corpuscular Hgb Conc 32.5 g/dL (32.0-36.0); Mean Corpuscular Volume 93.3 fL (80.0-100.0); Mean Platelet Volume 10.9 fL (9.4-12.4); Monocytes # (auto) 1.53 K/uL (0.11-0.59); Monocytes % (auto) 14.1 %; Neutrophils # (auto) 7.09 K/uL (1.40-6.50); Neutrophils % (auto) 65.2 %; Platelet Count 216 K/uL (130-400); RDW Standard Deviation 44.2 fL (36.4-46.3); White Blood Count 10.86 K/ul (4.8-10.8)
[2023-05-18 06:18] LABS: BUN Creatinine Ratio 25.7 (10-20); Calcium 8.7 mg/dl (8.6-10.3); Creatinine Clr Calc Pharmacy 38.1 ml/min; Est GFR (African American) 58.8 ml/min; Est GFR (Non-African American) 50.7 ml/min
[2023-05-18] MEDS: LEVOTHYROXINE SODIUM 112 MCG TABLET PO SCH (06:32)
[2023-05-18] MEDS: OLANZAPINE 2.5 MG TAB PO SCH ×2 (08:09→20:43)
[2023-05-18] MEDS: SERTRALINE HCL 100 MG TABLET PO SCH (08:09)
[2023-05-18] MEDS: PROPRANOLOL HCL 20 MG TAB PO SCH ×2 (08:10→20:43)
[2023-05-18] MEDS: MoRPHine SULFATE 2 MG/ML CARP IV PRN (08:38)
--- NOTE | 2023-05-18 12:46 | Orthopedic Consultation ---
Date of Service May 18, 2023 Assessment & Plan (1) Fracture of triquetrum of left wrist: Continue with velcro cock up wrist splint for protection. Wrist splint can be taken off to bath. Can work on flex/ex of fingers in left hand. Plan on taking xrays of her left wrist when she is followed up in our office in 3 weeks. History of Present Illness Reason for Consultation: . Requesting Physician: . Attending Physician: Audi Meehan MD Patient is an 87 y/o female who fell last week at the [facility] care facility that she is a resident of. This was an unwitness fall. She sustained multiple face lacerations as well as a right proximal humerus fracture which we were consulted on earlier. Patient was complaining of pain in her left wrist over the weekend. Xrays were obtained and had shown a non displaced dorsal fracture to the triquetrum. She is in a cock up wrist splint upon evaluation. Allergies Allergy/AdvReac Type Severity Reaction Status Date / Time atorvastatin Allergy Unknown ON CENTRE Verified 05/13/23 20:52 CARE MED LIST erythromycin base Allergy Unknown ON CENTRE Verified 05/13/23 20:52 CARE MED LIST Iodinated Contrast Media Allergy Unknown ON CENTRE Verified 05/13/23 20:52 CARE MED LIST--RADIOPAQUE IODINE. pravastatin Allergy Unknown ON CENTRE Verified 05/13/23 20:52 CARE MED LIST simvastatin Allergy Unknown ON CENTRE Verified 05/13/23 20:52 CARE MED LIST Home Medications Medication Instructions Recorded Confirmed Type acetaminophen 325 mg tablet 650 mg PO Q6H PRN PAIN/TEMP >100F. 05/13/23 05/13/23 History (Tylenol) acetaminophen 500 mg tablet 1,000 mg PO QAM 05/13/23 05/13/23 History (Tylenol Extra Strength) alprazolam 0.5 mg tablet 0.5 mg PO BID 05/13/23 05/13/23 History atorvastatin 20 mg tablet 20 mg PO HS 05/13/23 05/13/23 History cromolyn 4 % eye drops 2 drp OPB QID 05/13/23 05/13/23 History ferrous sulfate 325 mg (65 mg 325 mg PO QDL 05/13/23 05/13/23 History iron) tablet levothyroxine 112 mcg tablet 112 mcg PO DAILY 05/13/23 05/13/23 History linagliptin 5 mg tablet (Tradjenta) 5 mg PO QAM 05/13/23 05/13/23 History magnesium oxide 400 mg PO DAILY 05/13/23 05/13/23 History melatonin 5 mg tablet 10 mg PO HS 05/13/23 05/13/23 History olanzapine 2.5 mg tablet (Zyprexa) 2.5 mg PO BID 05/13/23 05/13/23 History propranolol 40 mg tablet 40 mg PO Q12H 05/13/23 05/13/23 History rivaroxaban 15 mg tablet (Xarelto) 15 mg PO PM 05/13/23 05/13/23 History sertraline 100 mg tablet 100 mg PO DAILY 05/13/23 05/13/23 History Past Med/Surg History Medical History Alzheimer's dementia Atrial flutter Legal blindness Lung cancer Surgical History History of lobectomy of lung Family History Other Family history non-contributory Social History Smoking Status: Unknown if ever smoked Hx Alcohol Use: No Hx Substance Use: No Preferred Language: Spanish Communication Ability: Impaired Communication Ability Comment: hx dementia, difficulty following commands Relish Maker Required: No Beliefs That Will Affect Care: None [facility] Current Living Situation Comment: locked dementia unit Feels Safe at Home: Yes Safety Concerns: Feels Safe At This Time Assistive Devices: Walker Review of Systems All systems reviewed & are unremarkable except as noted in HPI & below. Physical Exam Patient is sleeping and difficult to arouse in her hospital bed. I did remove the cock up wrist splint on her left wrist. No obvious deformities noted. No laterations. Pain was elicited from the patient with palpation over the dorsal aspect of the left wrist. Neurovscularly intact. Results & Data Results & Data Laboratory Results . Diagnostic Findings . PG Care Time/CCT Total # of Minutes Spent Total Time Spent with Patient: Total time spent is greater than 50% in coordination of care (as documented) at patient's floor/unit and/or counseling patient: Coding Level of Care Code 12833 IN/OBS CONSULT LVL 3,45M Diagnoses Fracture of triquetrum of left wrist S62.112A
--- NOTE | 2023-05-18 13:20 | Electrocardiogram Report ---
Test Reason : Blood Pressure : / mmHG Vent. Rate : 088 BPM Atrial Rate : 104 BPM P-R Int : 000 ms QRS Dur : 084 ms QT Int : 348 ms P-R-T Axes : 000 -41 -20 degrees QTc Int : 421 ms Atrial fibrillation Left axis deviation Low voltage QRS Inferior infarct , age undetermined Poor R wave progression, consider anterior AK vs. lead placement vs. LVH Abnormal ECG When compared with ECG of 16-MAY-2023 22:53, No significant change was found Confirmed by Jorge Christensen ([id number]) on 05/18/2023 1:20:30 PM Referred By: REFERRED SELF Confirmed By:Jorge Christensen
[2023-05-18] MEDS: ALPRAZolam 0.5 MG TABLET PO SCH ×2 (13:48→20:43)
[2023-05-18] MEDS: CEFEPIME 1,000 MG in SYRINGE 0 ML IV SCH (13:48)
--- NOTE | 2023-05-18 14:12 | Hospitalist Progress Note ---
Date of Service May 18, 2023 Assessment & Plan (1) UTI (urinary tract infection): Plan: Citrobacter isolated. She is now on intravenous cefepime, previously on intrav enous Rocephin (2) Atrial fibrillation: Plan: Controlled rate. Xarelto has been discontinued indefinitely due to advanced age and frequent falling (3) Wrist fracture, left: Plan: Splint in place. Appreciate orthopedic consultation and recommendations (4) Humerus fracture: Plan: Right humerus. Orthopedic consultation appreciated. Nonsurgical. Sling is in place (5) Alzheimer's dementia: Plan: Supportive care. [facility] (6) Contusion of face: Plan: Left face. This should eventually resolve (7) Fall: Plan: Multiple falls per family while at [facility]. Xarelto has been discontinued indefinitely Plan Hopeful return to [facility] unit tomorrow, May 19 Admission and Anticipated Discharge Date Admission Date: May 15, 2023 Subjective Stable overall. Swelling is abating around the left eye which is now open. However she is completely blind. Urine culture is growing Citrobacter. She will remain on cefepime and had Rocephin prior to this. Vancomycin is disco ntinued. EKG reveals atrial fibrillation with a controlled rate. She has mild acute blood loss anemia from the facial bruising and hematoma but does not require transfusion. Xarelto has been discontinued indefinitely. Hopefully she can return to [facility] dementia unit tomorrow, May 19. Orthopedic entry noted. Right arm is in a sling and the left wrist is in a splint Review of Systems Review of Systems: The patient is unable to answer any questions reliably regarding review of systems Physical Exam Physical Exam: General-alert. Baseline dementia HEENT-head atraumatic and normocephalic, swelling about the left eye has diminished to the point where the left eye is now open. Unfortunately she is blind Neck-no lymphadenopathy or thyromegaly, trachea midline Chest-clear to auscultation percussion. No rales wheezing or rhonchi Cardiac-irregular rhythm consistent with atrial fibrillation. Controlled rate. Abdomen-normal bowel sounds, nontender, no hepatosplenomegaly Extremities-no cyanosis, clubbing, or edema Neuro-cranial nerves II through XII intact, motor and sensory function within normal limits, no focal deficits Psych-baseline dementia Skinresolving hematoma left periorbital area. Extensive bruising left side of the face. Healing laceration which is sutured in the left eyebrow Results & Data Results & Data Vital Signs (Past 12 Hours) Vital Signs Temp Pulse Pulse Resp BP Pulse Ox O2 Del Method 05/18/23 11:12 37.4 C 88 18 112/72 90 Nasal Cannula 05/18/23 07:55 Nasal Cannula 05/18/23 08:49 104 H 05/18/23 07:35 37.5 C 95 H 16 117/61 100 Nasal Cannula 05/18/23 03:00 37.1 C 103 H 21 100/59 L 99 Nasal Cannula O2 Flow Rate 05/18/23 11:12 2 05/18/23 07:55 2 05/18/23 08:49 05/18/23 07:35 2 05/18/23 03:00 2 Laboratory Results 05/18/23 05:33 05/18/23 05:33 PG Care Time/CCT Total # of Minutes Spent Total Time Spent with Patient: Total time spent is greater than 50% in coordination of care (as documented) at patient's floor/unit and/or counseling patient: Coding Level of Care Code 65505 SUB INP/OBS CARE 3/50MIN Diagnoses UTI (urinary tract infection) N39.0 Atrial fibrillation I48.91 Wrist fracture, left S62.102A Humerus fracture S42.309A Alzheimer's dementia G30.9; F02.80 Contusion of face S00.83XA Fall W19.XXXA
[2023-05-18] MEDS: ATORVASTATIN 20 MG TAB PO SCH (20:43)
[2023-05-18] MEDS: MELATONIN 3 MG TAB PO SCH (20:44)
[2023-05-18] MEDS: ACETAMINOPHEN 325 MG TAB PO PRN (22:27)
[2023-05-19] MEDS: CEFEPIME 1,000 MG in SYRINGE 0 ML IV SCH (01:42)
[2023-05-19] MEDS: LEVOTHYROXINE SODIUM 112 MCG TABLET PO SCH (05:25)
[2023-05-19] MEDS: PROPRANOLOL HCL 20 MG TAB PO SCH (09:07)
[2023-05-19] MEDS: OLANZAPINE 2.5 MG TAB PO SCH ×2 (09:07→20:54)
[2023-05-19] MEDS: SERTRALINE HCL 100 MG TABLET PO SCH (09:10)
--- NOTE | 2023-05-19 09:38 | Palliative Care Consultation ---
Date of Consultation May 19, 2023 Assessment & Plan (1) Pain: with bilateral upper extremity fractures and facial contusion She has IV morphine ordered prn. Its not clear that she is able to articulate when she has pain and needs medication Agitation with care and facial grimace concerning for pain indicators Discussed with her daughter. Will add roxanol for pain in anticipation of discharge to SNF with IV morphine prn. She may benefit from routine dosing, will monitor. (2) Palliative care encounter: I met with Mrs. Severino's daughter, Mickie, at bedside. She tells me that her mother very much enjoyed dancing and helping other people. She has not been able to do either of these things for some time. She has been at [facility] in the dementia unit for over a year and Mickie has noticed significant decline in that time. She feels that her mother no longer has good quality of life and that if she were able to speak for herself, she would not want to live like this. She has talked with her brothers and the grandchildren and all are in agreement that focus on comfort and symptom management would be more in line with Mrs. Severino's wishes at this time. Mickie tells me that she does not want any medications that will prolong her mother's life. Her wish is for Mrs. Severino to receive only medications for comfort and symptom management until her dying time. She is familiar with hospice as her father of heart failure and Parkinson's disease 21 years ago. She would like hospice care for her mother as well. She has considered taking her mother to her home to care for her there but has a 9 yo son at home and is concerned about the impact that would have on him. He has been very distressed with visiting Mrs. Severino and seeing her decline. She lives in [place] [facility] and would prefer a SNF closer to home. Discussed with CM. Per her wishes, orders were adjusted for comfort measures only. Discussed with RN and Dr. Mcdowell. History of Present Illness Reason for Consultation: goals of care Requesting Physician: Dr. Meehan Attending Physician: Eugenio Mcdowell MD History of Present Illness 87 yo lady with history of advanced dementia and legal blindness who resides at [facility]. She had been ambulatory but had three falls in the last month. She presented after unwitnessed fall with facial contusion and laceration, right humerus fracture and left triquetrum fracture. She has a history of afib and has been rate controlled. Anticoagulation has been held due to frequent falls. She is awake but does not respond to questions. Per RN, she has agitation with routine care. She has been on zyprexa for agitation prior to admission. Her daughter tells me that prior to admission, she did not recognize family, was incontinent of bowel and bladder and had poor appetite. Allergies Allergy/AdvReac Type Severity Reaction Status Date / Time atorvastatin Allergy Unknown ON CENTRE Verified 05/13/23 20:52 CARE MED LIST erythromycin base Allergy Unknown ON CENTRE Verified 05/13/23 20:52 CARE MED LIST Iodinated Contrast Media Allergy Unknown ON CENTRE Verified 05/13/23 20:52 CARE MED LIST--RADIOPAQUE IODINE. pravastatin Allergy Unknown ON CENTRE Verified 05/13/23 20:52 CARE MED LIST simvastatin Allergy Unknown ON CENTRE Verified 05/13/23 20:52 CARE MED LIST Home Medications Medication Instructions Recorded Confirmed Type acetaminophen 325 mg tablet 650 mg PO Q6H PRN PAIN/TEMP >100F. 05/13/23 05/13/23 History (Tylenol) acetaminophen 500 mg tablet 1,000 mg PO QAM 05/13/23 05/13/23 History (Tylenol Extra Strength) alprazolam 0.5 mg tablet 0.5 mg PO BID 05/13/23 05/13/23 History atorvastatin 20 mg tablet 20 mg PO HS 05/13/23 05/13/23 History cromolyn 4 % eye drops 2 drp OPB QID 05/13/23 05/13/23 History ferrous sulfate 325 mg (65 mg 325 mg PO QDL 05/13/23 05/13/23 History iron) tablet levothyroxine 112 mcg tablet 112 mcg PO DAILY 05/13/23 05/13/23 History linagliptin 5 mg tablet (Tradjenta) 5 mg PO QAM 05/13/23 05/13/23 History magnesium oxide 400 mg PO DAILY 05/13/23 05/13/23 History melatonin 5 mg tablet 10 mg PO HS 05/13/23 05/13/23 History olanzapine 2.5 mg tablet (Zyprexa) 2.5 mg PO BID 05/13/23 05/13/23 History propranolol 40 mg tablet 40 mg PO Q12H 05/13/23 05/13/23 History rivaroxaban 15 mg tablet (Xarelto) 15 mg PO PM 05/13/23 05/13/23 History sertraline 100 mg tablet 100 mg PO DAILY 05/13/23 05/13/23 History Patient History Medical History Alzheimer's dementia Atrial flutter Legal blindness Lung cancer Surgical History History of lobectomy of lung Family History Other Family history non-contributory Social History Smoking Status: Unknown if ever smoked Hx Alcohol Use: No Hx Substance Use: No Preferred Language: [place] Communication Ability: Impaired Communication Ability Comment: hx dementia, difficulty following commands Major Gifts Manager Required: No Beliefs That Will Affect Care: None [facility] Current Living Situation Comment: locked dementia unit Feels Safe at Home: Yes Safety Concerns: Feels Safe At This Time Assistive Devices: Walker Review of Systems Review of Systems: Unobtainable due to cognitive status Physical Exam Constitutional: frail appearing, facial grimace ENMT: Mouth: + dry oral mucous membranes facial ecchymosis Respiratory: normal respiratory effort; no labored breathing Cardiovascular: Rate/Rhythm: + irregularly irregular Musculoskeletal: Extremities: + muscle atrophy sling right arm, splint left wrist Neurologic: Speech / Cognition: + abnormal cognition Results & Data Vital Signs (Past 12 Hours) Vital Signs Temp Pulse Pulse Resp BP Pulse Ox O2 Del Method 05/19/23 08:22 85 05/19/23 02:27 97.2 F L 76 16 144/74 H 100 Nasal Cannula 05/18/23 23:25 90 05/18/23 22:20 101.3 F H 91 H 16 120/66 100 Nasal Cannula O2 Flow Rate 05/19/23 08:22 05/19/23 02:27 1 05/18/23 23:25 05/18/23 22:20 1 PG Care Time/CCT Total # of Minutes Spent Total Time Spent with Patient: Total time spent is greater than 50% in coordination of care (as documented) at patient's floor/unit and/or counseling Coding Level of Care Code 16752 INT INP/OBS CARE MIN Medical Decision Making High Complexity Diagnoses Pain R52 Palliative care encounter Z51.5
--- NOTE | 2023-05-19 10:18 | XRay Report ---
XR chest 1V portable HISTORY: Left lower lobe pneumonia. Follow-up chest x-ray abnormality. COMPARISON: Chest 05/17/2023. FINDINGS: Small left basilar linear density has improved. No pneumothorax. No pleural effusions. The cardiac silhouette remains mildly enlarged. There are calcifications within the aortic knob. There is mild central pulmonary vascular congestion without overt edema. This remains unchanged. Incidental n ote is made of a right azygos lobe. Prior cholecystectomy. IMPRESSION: Small left basilar linear density has improved. This may represent resolving pneumonitis or atelectas is. ACT 112: Negative or not required by law. Electronically signed by: Mohsen Villanueva M.D. 05/19/2023 10:17 AM
[2023-05-19] MEDS: MoRPHine SULFATE 2 MG/ML CARP IV PRN ×2 (10:22→13:54)
[2023-05-19] MEDS ORDERED: LORazepam 2 MG/1 ML VIAL IV PRN (10:53)
[2023-05-19] MEDS ORDERED: ONDANSETRON INJ 2 MG/ML 2 ML VIAL IV PRN (10:53)
[2023-05-19] MEDS ORDERED: ONDANSETRON 4 MG OD TAB SL PRN (10:53)
[2023-05-19] MEDS: MoRPHine SULFATE 10 MG/0.5 ML UDP PO PRN ×2 (11:25→18:32)
--- NOTE | 2023-05-19 12:56 | Hospitalist Progress Note ---
Date of Service May 19, 2023 Assessment & Plan (1) Palliative care patient: Plan: patient's daughter Mickie Paniagua met with Dr Moss from palliative care in light of advanced dementia and ongoing decline from such Mickie and her siblings requested transition to comfort care measures only they have also asked for transition to hospice upon return to SNF she is currently at [facility] but daughter lives in [place] and asks for placement in SNF in [place] in meantime patient will be transitioned to comfort care pathway pt's daughter requests that abx be d/c thus cefepime has been stopped focus on comfort only d/c tele; transfer to 3rd floor med/surg (2) UTI (urinary tract infection): Plan: 2nd Citrobacter isolated previously on cefepime this will be stopped --> transitioning to comfort care measures (3) Atrial fibrillation: Plan: stopping xarelto stopping inderal (4) Wrist fracture, left: Plan: cont splint for comfort pain meds prn (5) Humerus fracture: Plan: Right cont sling for comfort pain meds prn (6) Alzheimer's dementia: Plan: advanced / end-stage transitioning to comfort care measures here then hospice at SNF (7) Contusion of face: Plan: Left face. 2nd to fall pre-admission. Pain meds prn. (8) Fall: Plan: Multiple falls per family while at SNF (9) Laceration of face: Plan: superior of L eye sutures placed 05/13/23 in our ER sutures can be taken out next 48 hours Plan appreciate palliative care consultation & assistance d/c tele move to med/surg comfort care pathway Admission and Anticipated Discharge Date Admission Date: May 15, 2023 Subjective patient had fever last pm despite being on antibiotics patient has had little appetite or PO intake by report the pt's daughter had asked to have consultation with palliative care Dr Moss met with the pt's daughter this am daughter reports severe dementia for 5+ years over last 6 months she has had severe decline in overall status - does not recognize family, weight loss, poor appetite, etc after this meeting occurred patient is now comfort care measures only Review of Systems Review of Systems: Unobtainable due to cognitive status Physical Exam Physical Exam: gen - laying in bed, starting at ceiling, only answered 1 question and the answer she gave was difficult to understand skin - extensive bruising over the left forehead, left face, and anterior neck; laceration above left eye well approximated with sutures intact mouth - MM dry heart - irregular, s1 s2 lungs - CTA b/l abd - mildly distended, BS+, NT, no HSM ext - no edema, pulses 2+ b/l psych - not alert, not oriented musculo - left wrist in splint; right arm in sling Results & Data Results & Data Vital Signs (Past 12 Hours) Vital Signs Temp Pulse Pulse Resp BP Pulse Ox O2 Del Method 05/19/23 11:05 36.8 C 75 18 135/63 Room Air 05/19/23 07:35 36.8 C 98 H 18 139/69 Room Air 05/19/23 08:22 85 05/19/23 02:27 36.2 C L 76 16 144/74 H 100 Nasal Cannula O2 Flow Rate 05/19/23 11:05 05/19/23 07:35 05/19/23 08:22 05/19/23 02:27 1 PG Care Time/CCT Total # of Minutes Spent Total Time Spent with Patient: Total time spent is greater than 50% in coordination of care (as documented) at patient's floor/unit and/or counseling patient: Coding Level of Care Code 88300 SUB INP/OBS CARE 2/35MIN Diagnoses Palliative care patient Z51.5 UTI (urinary tract infection) N39.0 Atrial fibrillation I48.91 Wrist fracture, left S62.102A Humerus fracture S42.309A Alzheimer's dementia G30.9; F02.80 Contusion of face S00.83XA Fall W19.XXXA Laceration of face S01.81XA
[2023-05-19] MEDS: ALPRAZolam 0.5 MG TABLET PO SCH ×2 (13:59→20:54)
[2023-05-19] MEDS: MELATONIN 3 MG TAB PO SCH (20:54)
[2023-05-20] MEDS: MoRPHine SULFATE 2 MG/ML CARP IV PRN ×4 (05:58→20:12)
[2023-05-20] MEDS: OLANZAPINE 2.5 MG TAB PO SCH ×2 (11:41→21:07)
--- NOTE | 2023-05-20 12:42 | Hospitalist Progress Note ---
Date of Service May 20, 2023 Assessment & Plan (1) Palliative care patient: Plan: Transition to Comfort Care on - Discharge request is either SNF at [place] or Home Hospice - Appreciate Case Management Assistance - Morphine IV/oral solution for pain, or air hunger - Ativan for anxiety/agitation - Zofran for N/Vomiting (2) UTI (urinary tract infection): Plan: Trreatment discontinued 05/18/23 secondary to transition to comfort care 2nd Citrobacter isolated (3) Atrial fibrillation: Plan: Afib chronic stopping Xarelto stopping Inderal (4) Wrist fracture, left: Plan: cont splint for comfort pain meds prn (5) Humerus fracture: Plan: Right cont sling for comfort pain meds prn (6) Alzheimer's dementia: Plan: advanced / end-stage transitioning to comfort care measures here then hospice at SNF (7) Contusion of face: Plan: Left face. 2nd to fall pre-admission. Pain meds prn. (8) Fall: Plan: Multiple falls per family while at SNF (9) Laceration of face: Plan: superior of L eye sutures placed 05/13/23 in our ER sutures can be taken out next 24 hours Admission and Anticipated Discharge Date Admission Date: May 15, 2023 Supervising Physician Co-Signing Physician Notes case d/w N [place] SERVICE PROVIDER - otherwise as above Subjective 87 YOF HD #7 following fall at [facility]- resulting in right humerus fracture, left wrist fracture and forehead laceration. Patient with longstanding dementia and requires assistance with all ADLS and care. Palliative care was consulted with transition on as patient continues to struggle with dementia and declination in overall health/function and now with decrease in wanting food or drink. She is currently on Comfort Measures with pain relief being goal. Case Management is assisting for placement- Currently looking for SNF in [place]. Daughter this morning did verbalize interest in taking her Mother home on Hospice if no beds were available, she has assistance with care and support system with family coming into town as well as local. CODE: DNR/DNI Physical Exam Physical Exam: PHYSICAL EXAM: General: Demented, non verbal, calm Head: Bruising and welling to left orbit and forehead, sutures are intact ENT: PERRL, EOMI, no pharyngeal exudate, mucous membranes dry, Neuro: AAO x 0, speech- none, does not follow commands, however does squeeze fingers and move feet with stimulation to soles of feet. Chest: equal rise and fall of the chest, no accessory muscle use, no heaves or thrills, Clear to auscultation, on room air, Cardiac: irregular rate and rhythm, skin warm dry, cap refill <3 seconds, peripheral pulses +2 no JVD, no murmur, GI: NABS x 4 quadrants, soft, :[facility] [facility] Results & Data Results & Data Vital Signs (Past 12 Hours) Vital Signs O2 Del Method 05/20/23 08:00 Room Air PG Care Time/CCT Total # of Minutes Spent Total Time Spent with Patient: Total time spent is greater than 50% in coordination of care (as documented) at patient's floor/unit and/or counseling patient: Coding Level of Care Code 01917 SUB INP/OBS CARE 2/35MIN Medical Decision Making Low Complexity Diagnoses Palliative care patient Z51.5 UTI (urinary tract infection) N39.0 Atrial fibrillation I48.91 Wrist fracture, left S62.102A Humerus fracture S42.309A Alzheimer's dementia G30.9; F02.80 Contusion of face S00.83XA Fall W19.XXXA Laceration of face S01.81XA Comment time spent discussing options with daughter and reviewing information/options with CM
[2023-05-20] MEDS: ALPRAZolam 0.5 MG TABLET PO SCH ×2 (15:15→21:07)
[2023-05-20] MEDS ORDERED: LORazepam 2 MG/1 ML VIAL IV PRN (17:57)
[2023-05-20] MEDS: MELATONIN 3 MG TAB PO SCH (21:07)
[2023-05-21] MEDS: MoRPHine SULFATE 2 MG/ML CARP IV PRN ×2 (05:56→10:42)
[2023-05-21] MEDS: OLANZAPINE 2.5 MG TAB PO SCH (08:17)
[2023-05-21] MEDS ORDERED: MoRPHine SULFATE 10 MG/0.5 ML UDP PO PRN (11:33)
[2023-05-21] MEDS ORDERED: MoRPHine SULFATE 2 MG/ML CARP IV PRN (11:34)
--- NOTE | 2023-05-21 12:19 | Palliative Care Progress Note ---
Date of Service May 21, 2023 Assessment & Plan (1) Pain: Plan: She appears to have pain with routine care. She also has periods of agitation and furrowed brow. She is not able to articulate pain or other symptoms. Discussed with daughter, Mickie, and one of her sons, with fractures and behaviors as well as prn morphine use in the last 24 hours, it would be to her benefit to provide routine morphine dosing. Will add prn roxanol in anticipation of discharge IV morphine remains available if po/sl is ineffective Monitor (2) Alzheimer's dementia: Plan: with agitation likely exacerbated by pain however, she had been on zyprexa BID routinely prior to admission Changed to ODT given difficulty with po intake Her routine alprazolam has also been changed to SL lorazepam with poor po intake (3) Palliative care encounter: Plan: I met with Mickie and her brother at bedside. Unfortunately there are no beds available at their preferred skilled facilities. Mickie has decided to take her mother home with hospice care. Her daughter is coming from [place] to help with care and there are multiple family members nearby. Mickie is familiar with hospice and the benefits provided. We did discuss option for respite care if they need a break from care at home. Mona could potentially go to SNF from home with hospice facilitating if a bed becomes available. Discussed with case management, social work support will be very helpful for them when she is discharged. Admission and Anticipated Discharge Date Admission Date: May 15, 2023 Subjective Lethargic, opens eyes briefly. Has been agitated at times. She has had 35mg OME in last 24 hours. Her son is at bedside and tells me that he's noticed brief periods of apnea. Review of Systems Review of Systems: Unobtainable due to cognitive status and Unobtainable due to reduced consciousness Physical Exam Constitutional: + ill appearing ENMT: Mouth: + dry oral mucous membranes facial ecchymosis furrowed brow Respiratory: normal respiratory effort; no labored breathing no audible rhonchi Musculoskeletal: muscle atrophy Neurologic: Speech / Cognition: normal cognition lethargic Genitourinary: incontinent PG Care Time/CCT Total # of Minutes Spent Total Time Spent: 60 Total Time Spent with Patient: Total time spent is greater than 50% in coordination of care (as documented) at patient's floor/unit and/or counseling patient: hospice, symptom management, family education and support, coordination of care Coding Level of Care Code 75089 SUB INP/OBS CARE 50MIN Diagnoses Pain R52 Alzheimer's dementia G30.9; F02.80 Palliative care encounter Z51.5
[2023-05-21] MEDS: MoRPHine SULFATE 10 MG/0.5 ML UDP PO SCH ×3 (12:29→20:59)
--- NOTE | 2023-05-21 13:46 | Hospitalist Progress Note ---
Date of Service May 21, 2023 Assessment & Plan (1) Palliative care patient: Plan: Transition to Comfort Care on 19 May 2023 - Discharge plan currently planning on home hospice - Appreciate Case Management Assistance - Morphine IV/oral and Roxanol solution for pain, or air hunger- attempt to move towards oral administration - Ativan for anxiety/agitation - Zofran for N/Vomiting - Set up home hospice medicines to bridge any gap between discharge and hospice arrival (2) UTI (urinary tract infection): Plan: Treatment discontinued 05/18/23 secondary to transition to comfort care 2nd Citrobacter isolated (3) Atrial fibrillation: Plan: Afib chronic stopping Xarelto stopping Inderal (4) Wrist fracture, left: Plan: LEFT acute following fall- traumatic cause cont splint for comfort pain meds prn (5) Humerus fracture: Plan: Right acute following fall truamatic cause (6) Alzheimer's dementia: Plan: advanced / end-stage transitioning to comfort care measures here then hospice at SNF (7) Contusion of face: Plan: Acute Left face - traumatic following fall 2nd to fall pre-admission. Pain meds prn. (8) Fall: Plan: Multiple falls per family while at SNF (9) Laceration of face: Plan: superior of L eye sutures placed 05/13/23 in our ER sutures can be taken out next 24 hours Admission and Anticipated Discharge Date Admission Date: May 15, 2023 Supervising Physician Co-Signing Physician Notes PHOTO TECH Supervision Note: I did not personally see or examine the patient. I verified all garcias points and agree with LUZ ELENA Nieves with the following exceptions and/or additions: none Subjective 87 YOF HD #8 following fall at [facility]- resulting in right humerus fracture, left wrist fracture and forehead laceration. Patient with longstanding dementia and requires assistance with all ADLS and care. Palliative care was consulted with transition on as patient continues to struggle with dementia and declination in overall health/function and now with decrease in wanting food or drink. She is currently on Comfort Measures with pain relief being goal. Case Management is assisting with home hospice following discussions yesterday. Patient appears more comfortable today and less anxious. Appreciate assistance from Dr. Moss with palliative care. Goals today will be to move towards oral/sublingual medications. Physical Exam Physical Exam: PHYSICAL EXAM: General: Demented, non verbal, calm Head: Bruising and welling to left orbit and forehead, sutures are intact ENT: PERRL, EOMI, no pharyngeal exudate, mucous membranes dry, Neuro: AAO x 0, speech- none, does not follow commands, however does squeeze fingers and move feet with stimulation to soles of feet. Chest: equal rise and fall of the chest, no accessory muscle use, no heaves or thrills, Clear to auscultation, on room air, Cardiac: irregular rate and rhythm, skin warm dry, cap refill <3 seconds, peripheral pulses +2 no JVD, no murmur, GI: NABS x 4 quadrants, soft, :[place] Results & Data Results & Data Medications Administered Active Medications Acetaminophen (Acetaminophen 325 Mg Tab) 650 mg PO Q4H PRN PRN Reason: pain/fever Stop: 06/13/23 02:53 Last Admin: 05/18/23 22:27 Dose: 650 mg Lorazepam (Lorazepam 2 Mg/1 Ml Vial) 0.5 mg IV Q4H PRN PRN Reason: Anxiety/Agitation Stop: 06/18/23 10:52 Lorazepam (Lorazepam 1 Mg Tab) 1 mg SL BID [facility] Stop: 06/20/23 20:59 Melatonin (Melatonin 3 Mg Tab) 9 mg PO HS [facility] Stop: 06/13/23 20:59 Last Admin: 05/20/23 21:07 Dose: Not Given Morphine Sulfate (Morphine Sulfate 2 Mg/Ml Carp) 2 mg IV Q1H PRN PRN Reason: Pain (6,7,8,9,10) Stop: 05/28/23 02:57 Morphine Sulfate (Morphine Sulfate 10 Mg/0.5 Ml Udp) 5 mg PO Q4H [facility] Stop: 06/04/23 11:59 Last Admin: 05/21/23 12:29 Dose: 5 mg Morphine Sulfate (Morphine Sulfate 10 Mg/0.5 Ml Udp) 5 mg PO Q2H PRN PRN Reason: Pain Stop: 06/04/23 11:32 Olanzapine (Olanzapine Zydis 5 Mg Orally Dis. Tab) 2.5 mg PO BID [facility] Stop: 06/20/23 20:59 Ondansetron HCl (Ondansetron Inj 2 Mg/Ml 2 Ml Vial) 4 mg IV Q4H PRN PRN Reason: Nausea &/or Vomiting Stop: 06/18/23 10:52 Ondansetron HCl (Ondansetron 4 Mg Od Tab) 4 mg SL Q4H PRN PRN Reason: Nausea &/or Vomiting Stop: 06/18/23 10:52 PG Care Time/CCT Total # of Minutes Spent Total Time Spent with Patient: Total time spent is greater than 50% in coordination of care (as documented) at patient's floor/unit and/or counseling patient: Coding Level of Care Code 68321 SUB INP/OBS CARE 2/35MIN Diagnoses Palliative care patient Z51.5 UTI (urinary tract infection) N39.0 Atrial fibrillation I48.91 Wrist fracture, left S62.102A Humerus fracture S42.309A Alzheimer's dementia G30.9; F02.80 Contusion of face S00.83XA Fall W19.XXXA Laceration of face S01.81XA
[2023-05-21] MEDS: MELATONIN 3 MG TAB PO SCH (21:00)
[2023-05-21] MEDS: LORazepam 1 MG TAB SL SCH (21:00)
[2023-05-21] MEDS: OLANZapine ZYDIS 5 MG ORALLY DIS. TAB PO SCH (21:00)
[2023-05-22] MEDS: MoRPHine SULFATE 10 MG/0.5 ML UDP PO SCH ×6 (00:53→20:16)
--- NOTE | 2023-05-22 08:44 | Hospitalist Progress Note ---
Date of Service May 22, 2023 Assessment & Plan (1) Palliative care patient: Plan: Transitioned to Comfort Care on 19 May 2023 - Discharge plan currently planning on home hospice tomorrow - Roxanol solution for pain or air hunger - Ativan for anxiety/agitation - Zofran for N/V (2) UTI (urinary tract infection): Plan: Treatment discontinued 05/18/23 secondary to transition to comfort care Citrobacter isolated (3) Atrial fibrillation: Plan: Afib chronic stopping Xarelto stopping Inderal (4) Wrist fracture, left: Plan: LEFT acute following fall- traumatic cause Cont splint for comfort Pain meds prn (5) Humerus fracture: Plan: Right acute following fall traumatic cause (6) Alzheimer's dementia: Plan: Advanced / end-stage Transitioning to comfort care measures here then hospice at SNF (7) Contusion of face: Plan: Acute Left face - traumatic following fall 2nd to fall pre-admission Pain meds prn (8) Fall: Plan: Multiple falls per family while at SNF (9) Laceration of face: Plan: superior of L eye sutures placed 05/13/23 in our ER sutures can be taken out tomorrow Admission and Anticipated Discharge Date Admission Date: May 15, 2023 Subjective No overnight events. Patient appears comfortable. Review of Systems Review of Systems: All systems reviewed & are unremarkable except as noted in Subjective Physical Exam Constitutional: thin, ill appearing, comfortable, asleep Results & Data Results & Data Vital Signs (Past 12 Hours) Vital Signs O2 Del Method 05/21/23 21:00 Room Air PG Care Time/CCT Total # of Minutes Spent Total Time Spent with Patient: Total time spent is greater than 50% in coordination of care (as documented) at patient's floor/unit and/or counseling patient: Coding Level of Care Code 38018 SUB INP/OBS CARE 1/25MIN Diagnoses Palliative care patient Z51.5 UTI (urinary tract infection) N39.0 Atrial fibrillation I48.91 Wrist fracture, left S62.102A Humerus fracture S42.309A Alzheimer's dementia G30.9; F02.80 Contusion of face S00.83XA Fall W19.XXXA Laceration of face S01.81XA
[2023-05-22] MEDS: OLANZapine ZYDIS 5 MG ORALLY DIS. TAB PO SCH ×2 (08:59→21:09)
[2023-05-22] MEDS: LORazepam 1 MG TAB SL SCH (08:59)
--- NOTE | 2023-05-22 13:42 | Palliative Care Progress Note ---
Date of Service May 22, 2023 Assessment & Plan (1) Pain: Plan: No prn medications in the last 24 hours. Appears comfortable at rest. Continue scheduled morphine dosing (2) Palliative care encounter: Plan: Talked with daughter, Mickie, at bedside. Despite periods of apnea, she has good BP and O2 sat. She does not appear to be imminently dying. Discussed what to expect with changes in breathing pattern. Mickie is confident that this is what Mona would want and feels some peace, knowing that Mona will likely in her home. She is preparing for delivery of DME tomorrow and plan is discharge home with hospice tomorrow. Discussed with RN. Admission and Anticipated Discharge Date Admission Date: May 15, 2023 Subjective Deeply lethargic. Periods of apnea. Does moan with repositioning. Review of Systems 2 Review of Systems: Unobtainable due to cognitive status and Unobtainable due to reduced consciousness Physical Exam Constitutional: no acute distress ENMT: Mouth: + dry oral mucous membranes no facial grimace Respiratory: apnea, no audible rhonchi Cardiovascular: no mottling Gastrointestinal (Abdomen): soft, nontender Neurologic: Speech / Cognition: normal cognition Results & Data Vital Signs (Past 12 Hours) Vital Signs Pulse Resp BP Pulse Ox O2 Del Method 05/22/23 13:20 97 H 11 L 123/85 91 Room Air 05/22/23 07:15 Room Air PG Care Time/CCT Total # of Minutes Spent Total Time Spent with Patient: Total time spent is greater than 50% in coordination of care (as documented) at patient's floor/unit and/or counseling patient: Coding Level of Care Code 76775 SUB INP/OBS CARE 2/35MIN Diagnoses Pain R52 Palliative care encounter Z51.5
[2023-05-22] MEDS: LORazepam 0.5 MG TAB SL SCH (21:09)
[2023-05-22] MEDS: MELATONIN 3 MG TAB PO SCH (21:09)
[2023-05-23] MEDS: MoRPHine SULFATE 10 MG/0.5 ML UDP PO SCH ×3 (00:17→08:49)
--- NOTE | 2023-05-23 06:56 | Discharge Summary ---
Discharge Summary Date of Service May 23, 2023 Admission HPI Per Admitting Provider Mona Severino is an 87yo female with history of Alzheimer's dementia, legal blindness presenting from [facility] after an unwitnessed fall. Patient is supposed to ambulate with a walker. She has fallen frequently - this is the 3rd time in the last month. Fall today was unwitnessed. Patient sustained a laceration on left forehead and a right humerus fracture. She is unable to provide clear details of the fall. She denies chest pain, palpitations or dizziness. No additional complaints at this time. Patient resides at [facility] - is unable to return there this evening due to staffing issues and her increased care needs given her right humerus fracture and inability to use her walker. In the ER she is hypertensive, in discomfort. Laceration over left eye is repaired Admission Exam Per Admitting Provider General: patient in discomfort, does not answer questions appropriately Skin: warm, dry, laceration over left eye HEENT: NC, laceration over left eye with significant periorbital ecchymosis, anicteric sclera, conjunctiva without injection, external ear normal to inspect ion and nontender, nares patent, moist mucus membranes, dentition intact, no oropharyngeal lesions, neck supple, trachea midline, no LAD, no thyromegaly, no JVD Heart: +S1/S2, regular, no m/r/g Lungs: equal air entry bilaterally, no rales/rhonchi/wheezes Abd: +BS, soft, NT/ND, no masses/organomegaly/ascites Ext: warm, 2+ pulses in UE/LE bilaterally, no clubbing/cyanosis or edema Acute tenderness with palpation and motion of RUE Neuro: nonfocal, speech intact, no facial droop, moving all extremities on command with equal strength 5/5 Principal Dx & Hospital Course #1 = Principal Diagnosis (1) Palliative care patient: Transitioned to Comfort Care on 19 May 2023 after discussion with family and Palliative Care - Roxanol solution for pain or air hunger - Ativan for anxiety/agitation - Zofran for N/V (2) UTI (urinary tract infection): Treatment discontinued 05/18/23 secondary to transition to comfort care Citrobacter isolated (3) Atrial fibrillation: Afib chronic Stopping Xarelto Stopping Inderal (4) Wrist fracture, left: LEFT acute wrist fracture following fall Cont splint for comfort Pain meds prn (5) Humerus fracture: Right acute humerus fracture following fall (6) Alzheimer's dementia: Advanced / end-stage Transitioned to comfort care measures here then hospice at SNF (7) Contusion of face: Acute Left face - traumatic following fall 2nd to fall pre-admission Pain meds prn (8) Fall: Multiple falls per family while at SNF (9) Laceration of face: Superior of L eye Sutures placed 05/13/23 in our ER, removed today before discharge Discharge Exam Constitutional WD/WN, vitals as above Psychiatric tired, comfortable appearing, arouses to voice Updated Medication List Medication Instructions Recorded Confirmed Type acetaminophen 325 mg tablet 650 mg PO Q6H PRN PAIN/TEMP >100F. 05/13/23 05/13/23 History (Tylenol) acetaminophen 500 mg tablet 1,000 mg PO QAM 05/13/23 05/13/23 History (Tylenol Extra Strength) melatonin 5 mg tablet 10 mg PO HS 05/13/23 05/13/23 History sertraline 100 mg tablet 100 mg PO DAILY 05/13/23 05/13/23 History lorazepam 1 mg tablet 1 mg sublingual Q8H 5 days #15 tabs 05/21/23 Rx morphine concentrate 100 mg/5 mL 5 mg (0.25 mL) PO Q4H 3 days #4.5 05/21/23 Rx (20 mg/mL) oral solution mL olanzapine 5 mg disintegrating 2.5 mg PO BID 10 days #10 tabs 05/21/23 Rx tablet ondansetron 4 mg disintegrating 4 mg sublingual Q4H PRN nausea and 05/21/23 Rx tablet vomiting #10 tabs Hospital Stay Data Consultations 05/13/23 22:42 ED Decision to Admit Stat 05/14/23 03:03 Consult Orthopedic Surgery Routine 05/18/23 15:31 Consult Palliative Care Routine Diagnostic Imagining Performed 05/13/23 19:27 CT facial bones wo con Stat 05/13/23 19:28 CT cervical spine wo con Stat CT head/brain wo con Stat Discharge Instructions Given to Patient (Per Discharging Provider) Lorazepam every 8 hours as needed for anxiety Morphine concentrate every 4 hours as needed for pain Zofran as needed for nausea Olanzapine as needed for agitation Total Time Total Time Spent Total Time Spent (In Minutes): 30 min Coding Level of Care Code 98229 IN/OBS DISCH 30 MIN/LESS Diagnoses Palliative care patient Z51.5 UTI (urinary tract infection) N39.0 Atrial fibrillation I48.91 Wrist fracture, left S62.102A Humerus fracture S42.309A Alzheimer's dementia G30.9; F02.80 Contusion of face S00.83XA Fall W19.XXXA Laceration of face S01.81XA Suture/Staple Removal Office Procedure Procedure performed by: Eliana Lam Wound Location:: Location: (forehead) and Length, cm: (3cm) Wound Exam:: Well Healed Suture/Staple Removed: # of Sutures removed: (3) Dressing:: Antibiotic Ointment Patieint status:: Tolerated Well Complications:: No Complications
[2023-05-23] MEDS: LORazepam 0.5 MG TAB SL SCH (08:49)
[2023-05-23] MEDS: OLANZapine ZYDIS 5 MG ORALLY DIS. TAB PO SCH (08:49)
== END 2023-05-23 10:35 | disposition hospice, home (50) | DRG 563 ==
LOC: ED 19:16 → EDINP 19:16 → SUATTDRO 23:24 → EDINP 05-14 02:54 → 3N 05-14 15:16 → SUATTDRO 05-15 09:36 → 2E 05-17 02:46 → 3E 05-19 16:10